=== PATIENT | male | born 1955 | race Asian ===

== ENCOUNTER 2020-08-30 11:50 | Outpatient (REF) | payer OTHER, SELFPAY ==
[2020-08-30 12:38] LABS: COVID-19 Test Negative (Negative)
== END 2020-08-30 11:51 | disposition home or self-care (01) ==
LOC: HO.LAB 11:50
PROVIDERS: Visit Provider Internal Medicine
DX: Z20.828 Contact with and (suspected) exposure to other viral communicable diseases (principal)
CPT/HCPCS: 87635

== ENCOUNTER 2021-01-22 14:55 | Outpatient (REF) | payer OTHER, SELFPAY ==
--- NOTE | ~2021-01-22 | XR_ITS ---
EXAMINATION: XR SHOULDER, RIGHT CLINICAL INFORMATION: Pain COMPARISON: None TECHNIQUE: 3 views of the right shoulder. FINDINGS: The bones and soft tissues are normal. No fracture. Glenohumeral and acromioclavicular alignment is anatomic with normal joint space. No abnormal soft tissue calcifications. XR/XR shoulder RT min 2V IMPRESSION: Normal right shoulder.
== END 2021-01-22 14:56 | disposition home or self-care (01) ==
LOC: HO.HOSX 14:55
PROVIDERS: Visit Provider Orthopaedic Surgery
DX: M25.511 Pain in right shoulder (principal)
CPT/HCPCS: 73030

== ENCOUNTER → 2021-01-23 10:10 | Outpatient (BNVA) | payer OTHER, SELFPAY | PROVIDERS: Visit Provider Orthopaedic Surgery | DX: M75.41 Impingement syndrome of right shoulder (principal) | CPT/HCPCS: 20610; 99202; J1040 ==

== ENCOUNTER → 2021-07-30 07:56 | Outpatient (BNVA) | payer OTHER, SELFPAY | PROVIDERS: Visit Provider Physician Assistant ==

== ENCOUNTER 2021-08-20 15:33 | Outpatient (REF) | payer OTHER, SELFPAY ==
--- NOTE | ~2021-08-20 | MR_ITS ---
EXAMINATION: MR SHOULDER WITHOUT CONTRAST, RIGHT CLINICAL INFORMATION: Impingement syndrome. Right shoulder pain. COMPARISON: Right shoulder radiographs dated 01/23/2021. TECHNIQUE: MRI of the shoulder without contrast was performed on a high-field scanner. FINDINGS: ROTATOR CUFF: Supraspinatus tendinosis with insertional intrasubstance partial tearing measuring 2.1 x 0.7 cm (AP by ML). Possible extension to the articular surface of the tendon where there is associated fraying/partial tearing measuring 1.8 cm in ML dimension to the level of the humeral head apex. [id number] subscapularis tendinosis. No muscle atrophy or fatty infiltration. BICEPS: Mild proximal long head biceps tendinosis. CORACOACROMIAL ARCH: The undersurface of the acromion is minimally curved with no subacromial spur. Moderate acromioclavicular osteoarthritis. Trace fluid within the subacromial subdeltoid bursa, consistent with mild bursitis. LABRUM/CAPSULE: Possible focal nondisplaced undersurface tearing of the posterosuperior labrum (axial image ). Fraying through the periphery of the superior labrum. Intact joint capsule. GLENOHUMERAL JOINT/MARROW: Articular cartilage thinning throughout the humeral head. Tiny marginal osteophytes. Small joint effusion. MR/MR shoulder RT wo con IMPRESSION: 1. Supraspinatus tendinosis with intrasubstance insertional partial tearing measuring 2.1 cm in AP dimension. Possible extension to the articular surface where there is irregular fraying/tearing measuring 1.8 cm in ML dimension. 2. Fizl-ry-wedomcif subscapularis tendinosis. 3. Mild proximal long head biceps tendinosis. 4. Possible focal nonosseous undersurface tear through the posterosuperior labrum. Fraying through the periphery of the superior labrum. 5. Moderate acromioclavicular osteoarthritis. Mild subacromial subdeltoid bursitis. 6. Mild glenohumeral osteoarthritis. Small joint effusion.
== END 2021-08-20 15:34 | disposition home or self-care (01) ==
LOC: HO.MRI 15:33
PROVIDERS: Visit Provider Physician Assistant
DX: M75.41 Impingement syndrome of right shoulder (principal)
CPT/HCPCS: 73221

== ENCOUNTER → 2021-09-09 15:37 | Outpatient (BNVA) | payer OTHER, SELFPAY | PROVIDERS: PCP Pediatrics; Visit Provider Internal Medicine ==

== ENCOUNTER 2021-10-02 05:55 | Outpatient (REF) | payer OTHER, SELFPAY ==
--- NOTE | ~2021-10-02 | FL_ITS ---
EXAMINATION: XR FLUOROSCOPY WITH IMAGES CLINICAL INFORMATION: M25.511 - Pain in right shoulder COMPARISON: Radiographs right shoulder the TECHNIQUE: Fluoroscopy performed by Dr. Ishaan Crow. Fluoroscopy time: 0.4 minutes DAP: 1.22 Gycm2 Images: 3 FINDINGS: There is spinal needle overlying the mid posterior right glenoid with contrast in the soft tissues. Another fluoroscopic spot view shows spinal needle overlying the greater tuberosity posterior aspect with contrast in the soft tissues. The third image shows spinal needle with tip just inferior to the coracoid process in region of short head biceps with contrast in the soft tissues. There is also contrast seen along the long head of biceps tendon sheath. FL/FL guidance in treatment room IMPRESSION: Fluoroscopy for pain management procedures.
== END 2021-10-02 05:56 | disposition home or self-care (01) ==
LOC: HO.RADIR 05:55
PROVIDERS: Visit Provider Internal Medicine
DX: M25.511 Pain in right shoulder (principal)
CPT/HCPCS: 64417; 64418; Q9967

== ENCOUNTER 2021-10-14 11:08 | Outpatient (REF) | payer OTHER, SELFPAY ==
[2021-10-14 12:07] LABS: Influenza A PCR NEGATIVE (Negative); Influenza B PCR NEGATIVE (Negative); Resp Syncy Virus RNA Qual PCR NEGATIVE (Negative); SARS COV2 PCR INHOUSE NEGATIVE (Negative)
== END 2021-10-14 11:09 | disposition home or self-care (01) ==
LOC: HO.LAB 11:08
PROVIDERS: Visit Provider Internal Medicine
DX: Z20.822 Contact with and (suspected) exposure to COVID-19 (principal)
CPT/HCPCS: 0241U; 36415; C9803

== ENCOUNTER 2021-10-15 11:36 | Outpatient (REF) | payer OTHER, SELFPAY ==
[2021-10-15 12:35] LABS: Influenza A PCR NEGATIVE (Negative); Influenza B PCR NEGATIVE (Negative); Resp Syncy Virus RNA Qual PCR NEGATIVE (Negative); SARS COV2 PCR INHOUSE NEGATIVE (Negative)
== END 2021-10-15 11:37 | disposition home or self-care (01) ==
LOC: HO.LAB 11:36
PROVIDERS: Visit Provider Internal Medicine
DX: Z20.822 Contact with and (suspected) exposure to COVID-19 (principal)
CPT/HCPCS: 0241U; 36415; C9803

== ENCOUNTER → 2021-11-25 08:04 | Outpatient (BNVA) | payer OTHER, SELFPAY | PROVIDERS: Visit Provider Internal Medicine ==

== ENCOUNTER → 2022-08-25 10:00 | Outpatient (RCR) | payer OTHER, SELFPAY ==
[2020-09-17 09:22] LABS: COVID-19 Test Negative (Negative)
[2020-09-24 08:06] LABS: COVID-19 Test Negative (Negative)
[2020-10-01 08:25] LABS: COVID-19 Test Negative (Negative)
[2020-10-08 07:40] LABS: COVID-19 Test Negative (Negative); IDNOW Serial# 55D5AD1C
[2020-10-15 07:45] LABS: COVID-19 Test Negative (Negative); IDNOW Serial# 55D5AD1C
[2020-10-22 07:22] LABS: COVID-19 Test Negative (Negative); IDNOW Serial# 55D5AD1C
[2020-10-31 11:55] LABS: SARS-COV-2 PCR UMBRL Not Detected
[2020-11-07 08:17] LABS: SARS-COV-2 PCR UMBRL Not Detected
== END | disposition home or self-care (01) ==
LOC: HO.EMPCOV 09-17 08:58
PROVIDERS: Visit Provider Internal Medicine
DX: Z20.828 Contact with and (suspected) exposure to other viral communicable diseases (principal)
CPT/HCPCS: 87635; C9803; U0003

== ENCOUNTER 2024-09-12 10:05 | Outpatient (AMB) | payer OTHER, SELFPAY ==
[2024-09-12 10:18] VITALS: BP 140/70; PULSE 80; RESP 15; O2SAT 96; BMI 26.4
--- NOTE | 2024-09-12 10:18 | MHC.OFFVIS ---
Vital Signs 09/12/24 10:18 Height 6 ft Weight 195 lb BMI 26.4 BP 140/70 H Blood Pressure Location Lt brachial Position Sitting Respiration 15 Pulse 80 Pulse Source Pulse Oximeter Pulse Oximetry (%) 96 Oxygen Delivery Method Room Air Intake Visit Reasons: f/u per Dr. Crow Allergies No Known Allergies [No Known Allergies*] Allergy (Verified 09/12/24 10:19) Medication List - Last Reconciled 09/12/24 by Claudia Bethea LPN atenolol 25 mg PO DAILY atorvastatin mg PO dulaglutide 1.5 mg subcut QWEEK empagliflozin 25 mg PO DAILY guaifenesin ER 1,200 mg PO BID losartan 50 mg PO DAILY metformin 1,000 mg PO BID pantoprazole 40 mg PO DAILY polyethylene glycol 3350 (Miralax) 17 grams PO BID tamsulosin 0.8 mg PO DAILY HPI HPI f/u per Dr. Crow: Details: 68-year-old male who presents today to the office for a follow up. He is here for follow up on his hand pain.? He continues to have pain, which is significantly worse with activity. He is due for a follow up with Dr. Paul in Orthopedics department. Past Procedures: 10/02/21: Right Diagnostic Axillary Nerve Block ? 70% relief. 01/23/21: Cortisone Injection ? Mild relief for a few days.? [facility] Medical History (Updated 09/27/24 @ 14:13 by Ishaan Crow MD) Right shoulder pain High cholesterol Hypertension Diabetes Family History Father No problems noted. Mother No problems noted. 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 Alert and oriented. Mood and affect appropriate. Follows and participates in conversation appropriately. Respiratory effort is unlabored. Able to transition from sit to stand unassisted. Ambulates with bilaterally normal heel strike and toe off. Exquisite tenderness overlying the right thumb and basal joint. Results Reviewed Results Reviewed: No imaging is available for review. 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 Scribed for Dr. Crow by Ghassan Molina, infertility medical assistant, on 09/12/2024. I, Dr. Crow, have personally reviewed and agree with the information entered by the scribe. Coding Level of Care Code Est Pt Level 3 (16519) Diagnoses Chronic pain of right thumb M79.644; G89.29
== END 2024-09-12 10:58 | disposition home or self-care (01) ==
LOC: HO.PMC 10:05
PROVIDERS: Visit Provider Internal Medicine
DX: M79.644 Pain in right finger(s) (principal); G89.29 Other chronic pain
CPT/HCPCS: 99213

== ENCOUNTER → 2024-09-12 10:05 | Outpatient (BNVA) | payer OTHER, SELFPAY | PROVIDERS: Visit Provider Internal Medicine ==

== ENCOUNTER 2024-10-24 08:32 | Outpatient (REF) | payer OTHER, SELFPAY ==
[2024-10-24 08:54] LABS: MANUAL DIFF FLAG NO
[2024-10-24 09:34] LABS: Basophils Percent Auto 0.4 % (0-2); Eosinophils Absolute Auto 0.1 X10*3/uL (0.0-0.4); Hemoglobin 14.7 g/dl (14.0-18.0); Imm Gran Abs Auto 0.03 X10*3/uL (0.00-0.03); Imm Gran Pct Auto 0.4 % (0.0-0.4); Lymphocytes Absolute Auto 1.3 X10*3/uL (1.2-4.9); Lymphocytes Percent Auto 17.5 % (20-40); Mean Corpuscular HGB Conc 33.4 g/dl (31.0-36.0); Mean Corpuscular Hemoglobin 29.3 pg (27.0-33.0); Mean Corpuscular Volume 87.8 fL (80.0-98.0); Mean Platelet Volume 11.2 fL (9.4-12.4); Monocytes Absolute Auto 0.4 X10*3/uL (0.1-1.2); Monocytes Percent Auto 5.7 % (2-11); Neutrophils Absolute Auto 5.5 x10*3/uL (2.0-8.3); Platelet Count 257 X10*3/uL (160-400); Red Blood Count 5.01 X10*6/uL (4.60-5.80); Red Cell Distribution Width 12.5 % (11.0-16.0); White Blood Count 7.4 X10*3/uL (4.8-10.8)
[2024-10-24 09:45] LABS: Estimated Average Glucose 263 mg/dL; Hemoglobin A1C 352.4433 umol/L; Hemoglobin A1c % 10.8 % (<6.0); Total Hemoglobin (HGBA1C) 3746.1557 umol/L
[2024-10-24 10:10] LABS: Alanine Aminotransferase 40 U/L (0-40); Alkaline Phosphatase 97 U/L (39-117); Anion Gap 13 (12-20); Aspartate Amino Transferase 28 U/L (5-37); Bilirubin Total 0.5 mg/dL (0.0-1.0); Blood Urea Nitrogen 14 mg/dL (9-16); Calcium 8.4 mg/dL (8.4-10.2); Carbon Dioxide 25 mmol/L (22-29); Chloride 106 mmol/L (96-108); Cholesterol 100 mg/dL (<200); Estimated Glomerular Filt Rate > 60; Glucose Random 244 mg/dL (60-115); HDL Cholesterol 34 mg/dL (>40); LDL Cholesterol Calculated 46 mg/dL (<100); Potassium 4.2 mmol/L (3.3-5.1); Sodium 140 mmol/L (135-145); Total Protein 6.8 g/dL (6.5-8.0); Triglycerides 100 mg/dL (<150)
[2024-10-24 11:49] LABS: Creatinine Urine 50.75 mg/dL; Microalbumin Urine < 5.0 mg/L
== END 2024-10-24 08:33 | disposition home or self-care (01) ==
LOC: HO.LAB 08:32
PROVIDERS: Visit Provider Pediatrics
DX: E11.618 Type 2 diabetes mellitus with other diabetic arthropathy (principal)
CPT/HCPCS: 36415; 80053; 80061; 82043; 82570; 83036; 85025

== ENCOUNTER 2025-01-09 10:10 | Outpatient (AMB) | payer OTHER, SELFPAY ==
--- NOTE | 2025-01-09 10:27 | MHC.PC.OV ---
Vital Signs 01/09/25 10:32 Height 6 ft Weight 204 lb BMI 27.7 BP 140/76 H Blood Pressure Location Lt brachial Position Sitting Pulse 75 Pulse Source Pulse Oximeter Pulse Oximetry (%) 96 Oxygen Delivery Method Room Air Intake Visit Reasons: establish care Intake Note: Patient is a new patient here to establish care for DMII, HTN. Transferring care from [facility]. Medical records have been requested today. Extractor Filler Required: No Accompanied by: Self / Same As Patient Allergies No Known Allergies [No Known Allergies*] Allergy (Verified 01/09/25 10:49) Medication List - Last Reconciled 01/09/25 by Adalberto Stanford PA-C atenolol 25 mg PO DAILY atorvastatin mg PO empagliflozin 25 mg PO DAILY losartan 50 mg PO DAILY metformin ER mg PO omeprazole 20 mg PO DAILY pantoprazole 40 mg PO DAILY semaglutide (Ozempic) mg subcut tamsulosin 0.8 mg PO DAILY Tobacco use date assessed: 01/09/25 Fall risk assessment: No Falls in past year Last assessed Fall Risk: 01/09/25 Dental Screening Dental Screen Date: 01/09/25 Did you have a dental visit in the last 12 months?: Yes Did you have a dental problem in the last 6 months where you did not have access to dental care?: No Was dental information given to patient?: Patient has dentist HPI establish care HPI Details Patient has a 69 year male here today for new patient visit. Patient has a past medical history significant for hyperlipidemia, type 2 diabetes, hypertension. Previous PCP was at [facility] Concern-- > reports having left hand weakness and pain at the base of his thumb. 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 He is interested in seeing hand surgeon in near future. .. Type 2 diabetes: Has been suboptimally controlled. Today's A1c at 9 from 10.1. Currently fasting due to Ramadan He continues with Trulicity in metformin 750 mg .. Hyperlipidemia: Recent lipid panel showing good control of his total cholesterol and LDL. Laboratory Tests 05/28/20 10/24/24 10/24/24 09:02 08:46 08:48 Fasting Glucose 225 H Random Glucose 244 H Hemoglobin A1c % 10.8 H Cholesterol 100 LDL Cholesterol, C alc 46 Urine Microalbumin < 5.0 [facility] Medical History Right shoulder pain High cholesterol Hypertension Diabetes Family History Father No problems noted. Mother No problems noted. 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 Cognitive needs: No Hearing needs: No Vision needs: No Questionnaire PHQ-9 Over the last 2 weeks, how often have you been bothered by any of the following problems? 1. Little interest or pleasure in doing things: not at all 2. Feeling down, depressed, or hopeless: not at all 3. Trouble falling or staying asleep, or sleeping too much: not at all 4. Feeling tired or having little energy: not at all 5. Poor appetite or overeating: not at all 6. Feeling bad about yourself - or that you are a failure or have let yourself or your family down: not at all 7. Trouble concentrating on things, such as reading the newspaper or watching television: not at all 8. Moving or speaking so slowly that other people could have noticed. Or the opposite - being so fidgety or restless that you have been moving around a lot more than usual: not at all 9. Thoughts that you would be better off or of hurting yourself in some way: not at all Total score: 0 Depression Screening Interpretation: Negative Depression Screening Done: Yes 45514 - PHQ-9 Billing: Yes Source: Developed by Drs. Branden Bonds, Liz Pérez, Mode Patterson and colleagues, with an educational carson from [employer]. Thrive Questionnaire Date Thrive assessed: 01/09/25 I am a: Patient What is your living situation today?: I have a steady place to live Within the past 12 months, did the food you bought not last and you didn't have the money to get more?: Never true Within the past 12 months, did you worry whether your food would run out before you got money to buy more?: Never true Do you have trouble paying for medicines?: No Do you have trouble getting transportation to medical appointments?: No Do you have trouble paying your heating and electricity bill?: No Do you have trouble taking care of your child, family member or friend?: No Do you have trouble with day-to-day activities such as bathing, preparing meals, shopping, managing finances, etc.?: No Are you currently unemployed and looking for a job?: No Are you interested in more education?: Yes Please select the resources that you would like help with: None Currently or been in a relationship where the following occur: No concerns reported THRIVE Score: 0 AUDIT C Alcohol Use Questionnaire (AUDIT-C) 1. How often do you have a drink containing alcohol?: Never 3. How often do you have six or more drinks on one occasion?: Never Total Score: 0 LINSEY-7 AMB Questionnaire LINSEY-7 Date LINSEY - 7 assessed: 01/09/25 Feeling nervous, anxious, or on edge: 0 = Not at all Not being able to stop or control worryin = Not at all Worrying too much about different things: 0 = Not at all Trouble relaxin = Not at all Being so restless that it is hard to sit still: 0 = Not at all Becoming easily annoyed or irritable: 0 = Not at all Feeling afraid as if something awful might happen: 0 = Not at all Total LINSEY-7 score (0-4 normal; 5-9 mild; 10-14 moderate; 15-21 severe): 0 Source: Developed by Drs. Branden Bonds, Liz Pérez, Mode Patterson and colleagues, with an educational carson from [employer]. LINSEY-7 Assessment Billing LINSEY-7 Assessment Tool: LINSEY-7 Assessment 07696 Review of Systems Const Denies headache(s) Eyes Denies loss of vision ENT Denies vertigo, Denies dizziness, Denies headache(s) and Denies sore throat Card Denies chest pain, Denies leg edema and Denies lightheadedness Resp Denies cough, Denies hemoptysis and Denies wheezing GI Denies abdominal pain, Denies melena, Denies constipation, Denies diarrhea and Denies vomiting Denies dysuria, Denies urinary frequency and Denies urinary urgency Musc Denies arthralgias, Denies joint swelling, Denies numbness and Denies tingling Neuro Denies Abnormal speech present, Denies behavioral changes, Denies vertigo, Denies dizziness, Denies headache(s), Denies loss of vision, Denies memory loss, Denies numbness and Denies tingling Psych Denies anxiety, Denies behavioral changes, Denies depression, Denies memory loss and Denies panic attacks Maximus/Lymph Denies easy bleeding and Denies easy bruising Aller/Immun Denies wheezing Physical exam (Primary Care) Vital Signs: Last Vital Signs Pulse 75 01/09/25 10:32 BP 140/76 H 01/09/25 10:32 Pulse Ox 96 01/09/25 10:32 Oxygen Delivery Method Room Air 01/09/25 10:32 BMI result Body Mass Index 27.7 Tobacco/Smoking Status: Tobacco use Status Tobacco use date assessed 01/09/25 01/09/25 10:45 Patient Tobacco Use Status Never used Tobacco 01/09/25 10:45 e-Cigarette/Vaping Use Never Used 01/09/25 10:45 PHQ-9: PHQ-9 Score PHQ-9: Total score 0 01/09/25 15:12 Depression Screening Interpretation: Negative Thrive Assessment: Date of Thrive Assessment Date Thrive assessed 01/09/25 01/09/25 10:27 Currently or been in a relationship where the following occur: No concerns reported Const General: healthy appearing, no acute distress, alert and awake Nutritional Appearance: well nourished Orientation/consciousness: oriented to person, oriented to place and oriented to time HENMT Ears: TM's normal bilaterally General nose exam: Normal nasal mucous membranes and turbinates present Eyes Conjunctivae: conjunctivae normal Sclerae: sclerae normal Pupils: Equal, round and reactive pupils present Neck Neck: Yes no lymphadenopathy and Yes no JVD Thyroid: Thyroid normal Carotids: no bruits Resp Effort & Inspection: normal respiratory effort and not tachypneic Auscultation: no crackles, no rales, no rhonchi and no wheezes Cardio Rate: regular rate Rhythm: regular rhythm Heart sounds: no murmurs and normal S1 and S2 GI Palpation (GI): Soft to palpation, nontender, no hepatomegaly and no splenomegaly Auscultation: normal bowel sounds Skin General skin exam: no rashes or lesions noted and dry skin Neuro General: oriented to person, oriented to place and oriented to time Cranial nerves: Yes Equal, round and reactive pupils present Speech: No Abnormal speech present Gait exam (Neuro): Normal gait present Motor exam (neuro): no tremor noted Extrem Right upper extremity: full ROM Left upper extremity: full ROM Right lower extremity: full ROM; no edema Left lower extremity: full ROM; no edema Psych Mental Status: mental status grossly normal Speech and movement: Normal speech and movement present Affect: normal affect Attitude: cooperative Thought process: Normal thought process present Office Procedures Flu Questionnaire Does the patient have a severe egg allergy?: No Does the patient have severe life threatening allergies?: No Does the patient have a fever or illness today?: No Has the patient ever had Guillain-[place] Syndrome?: No Has the patient ever had any past reaction to a flu shot?: No Results AMB Hemoglobin A1c AMB Hemoglobin A1c 9.4 % Last Edit by EVIE Catalan on 01/09/25 10:59 Immunizations Fluarix Triv [id number] (PF) 45 mcg (15 mcg x 3)/0.5 mL IM syringe Performing Provider: Adalberto Stanford PA-C [facility] Documented (not given) by: EVIE Catalan on 01/09/25 10:48 Reason Not Given: Received Previously Results Reviewed Results Reviewed: Laboratory Last Values Hgb A1c (Clinic) 9.4 % (4.0-6.0) H 01/09/25 10:26 Coding Level of Care Code New Pt Level 4 (20212) Diagnoses Type 2 diabetes mellitus with hyperglycemia, without long-term current use of insulin E11.65 Diabetes mellitus complication status: with hyperglycemia Diabetes mellitus senior care insulin use: without senior care use Diabetes mellitus type: type 2 High cholesterol E78.00 Primary hypertension I10 Hypertension type: primary hypertension 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 Benign prostatic hyperplasia without lower urinary tract symptoms N40.0 Lower urinary tract symptom presence: symptoms absent Additional Codes LINSEY-7 Assessment Billing - LINSEY-7 Assessment Tool: LINSEY-7 Assessment 38377 ([id number]) PHQ-9 - 39719 - PHQ-9 Billing: Yes ([id number]) Assessment & Plan Assessment & Plan (1) Diabetes: Code(s): E11.9 - Type 2 diabetes mellitus without complications Category: Medical Qualifiers: Diabetes mellitus complication status: with hyperglycemia Diabetes mellitus senior care insulin use: without senior care use Diabetes mellitus type: type 2 Qualified Code(s): E11.65 - Type 2 diabetes mellitus with hyperglycemia Plan: Patient's type 2 diabetes is suboptimally controlled A1c above 9. For now his treatment regime will be Trulicity weekly along with metformin a 1000 daily. Will make adjustments per lab results. Currently fasting due to Ramadan. (2) High cholesterol: Code(s): E78.00 - Pure hypercholesterolemia, unspecified Category: Medical Plan: Most recent lipid panel showing good control of his total cholesterol and LDL. He continues on atorvastatin 40 mg. Goal LDL to remain below 100 (3) Hypertension: Code(s): I10 - Essential (primary) hypertension Category: Medical Qualifiers: Hypertension type: primary hypertension Qualified Code(s): I10 - Essential (primary) hypertension Plan: Patient's blood pressure slightly elevated today in office. He continues with the atenolol and losartan. 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 He is interested in seeing a hand surgeon the fall of 2024 (5) BPH (benign prostatic hyperplasia): Code(s): N40.0 - Benign prostatic hyperplasia without lower urinary tract symptoms Category: Medical Qualifiers: Lower urinary tract symptom presence: symptoms absent Qualified Code(s): N40.0 - Benign prostatic hyperplasia without lower urinary tract symptoms Plan: Patient continues on tamsulosin with good effect on his urinary stream. Will continue to follow his PSA. Orders: Orders Influenza [id number] Immunization 01/09/25 Z23 - Encounter for immunization AMB Hemoglobin A1c 01/09/25 E11.9 - Type 2 diabetes mellitus without complications Medications: Changed From empagliflozin 25 mg PO DAILY E11.65 - Type 2 diabetes mellitus with hyperglycemia To empagliflozin 25 mg PO DAILY 90 days 90 tabs 1RF E11.65 - Type 2 diabetes mellitus with hyperglycemia From atenolol 25 mg PO DAILY I10 - Essential (primary) hypertension To atenolol 25 mg PO DAILY 90 days 90 tabs 1RF I10 - Essential (primary) hypertension From atorvastatin PO E78.00 - Pure hypercholesterolemia, unspecified To atorvastatin 40 mg PO QPM 90 days 90 tabs 1RF E78.00 - Pure hypercholesterolemia, unspecified From tamsulosin 0.8 mg PO DAILY N40.0 - Benign prostatic hyperplasia without lower urinary tract symptoms To tamsulosin 0.8 mg (2 x 0.4 mg) PO DAILY 90 days 180 caps 1RF N40.0 - Benign prostatic hyperplasia without lower urinary tract symptoms From losartan 50 mg PO DAILY 30 tabs 2RF E78.00 - Pure hypercholesterolemia, unspecified To losartan 50 mg PO DAILY 90 days 90 tabs 1RF E78.00 - Pure hypercholesterolemia, unspecified Patient Instructions: Goal: Blood pressure to be below 140/90, LDL to be below 100, A1c to be below 7.0 Barriers: Adherence to physical activity and healthy eating habits
[2025-01-09 10:32] VITALS: BP 140/76; PULSE 75; O2SAT 96; BMI 27.7
== END 2025-01-09 11:11 | disposition home or self-care (01) ==
PROVIDERS: Visit Provider Physician Assistant
DX: E11.65 Type 2 diabetes mellitus with hyperglycemia (principal); E78.00 Pure hypercholesterolemia, unspecified; I10 Essential (primary) hypertension; R29.898 Other symptoms and signs involving the musculoskeletal system; N40.0 Benign prostatic hyperplasia without lower urinary tract symptoms

== ENCOUNTER → 2025-01-09 10:10 | Outpatient (BNVA) | payer OTHER, SELFPAY | PROVIDERS: Visit Provider Physician Assistant | DX: E11.65 Type 2 diabetes mellitus with hyperglycemia (principal); E78.00 Pure hypercholesterolemia, unspecified; I10 Essential (primary) hypertension; R29.898 Other symptoms and signs involving the musculoskeletal system; N40.0 Benign prostatic hyperplasia without lower urinary tract symptoms; Z79.84 Long term (current) use of oral hypoglycemic drugs; Z79.899 Other long term (current) drug therapy | CPT/HCPCS: 83036; 90471; 96127 ==

== ENCOUNTER 2025-03-07 08:38 | Outpatient (REF) | payer OTHER, SELFPAY ==
--- NOTE | ~2025-03-07 | XR_ITS ---
EXAMINATION: XR HAND 3 OR MORE VIEWS LEFT HISTORY: M79.641 - Pain in left hand COMPARISON: There are no prior studies available for comparison. FINDINGS: Three views of the left hand are submitted. Osseous mineralization is normal. There is no fracture or dislocation. There is moderate degenerative change of the 1st carpometacarpal joint, with joint space narrowing and osteophyte formation. There is mild narrowing of the DIP joint of the 4th finger. The soft tissues are unremarkable. XR/XR hand LT min 3V IMPRESSION: Degenerative changes of the left hand as described. Electronically signed by: Branden Zuniga MD 03/08/2025 05:29 PM EDT
== END 2025-03-07 08:39 | disposition home or self-care (01) ==
LOC: HO.HOSX 08:38
PROVIDERS: PCP Physician Assistant; Visit Provider Orthopaedic Surgery
DX: M79.642 Pain in left hand (principal); M18.12 Unilateral primary osteoarthritis of first carpometacarpal joint, left hand
CPT/HCPCS: 20600; 73130; J1010; J2003

== ENCOUNTER 2025-03-07 08:38 | Outpatient (AMB) | payer OTHER, SELFPAY ==
--- NOTE | 2025-03-07 08:57 | MHC.OFFVIS ---
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 States pain started approx 1 year ago and has worsen. He is having pain with gripping, grasping, twisting and lifting items. Pain is at his CMC joint. He has ROM. Denies numbness, tingling or locking of any finger. 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 He works [place] [employer] [place]. He complains of pain at the base of his thumb & his wrist, worse with pinching & gripping activities. His pain has been worsening over the last year. He also complains of similar pain at the base of his right thumb, but his left is more bothersome at this time. He denies any numbness, tingling, locking, or catching. He has been seen by Pain Management in the past, and received a steroid injection by Dr. Crow ~1 year ago, with good relief. He is a Diabetic, which is not well-controlled. His most recent HgA1c was 9.4% on 01/09/25. He is working to manage this better. [facility] Medical History Right shoulder pain High cholesterol Hypertension Diabetes Family History Father No problems noted. Mother No problems noted. 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[employer] [place] Cognitive needs: No Hearing needs: No Vision needs: No Review of Systems Const All systems reviewed & are unremarkable except as noted in HPI and below Physical Exam Vital Signs: BMI result Body Mass Index 27.7 Const General: cooperative, healthy appearing and no acute distress Orientation/consciousness: patient oriented x3 HEENT Head: Yes normocephalic and Yes atraumatic Eyes EOM: EOMs intact bilaterally Resp Effort & Inspection: normal respiratory effort and able to speak in complete sentences Cardio Jugular venous distension: no JVD Skin General skin exam: turgor normal Rashes: no rashes Neuro General: patient oriented x3 Extrem Other: Evaluation of Left Upper Extremity: The patient is alert, oriented, and in no acute distress Neuro: Median, Ulnar, Radial nerves motor and sensory intact and sensation is normal to the tips of all digits Vascular: Cap refill brisk ROM: He can make a fist and extend all his digits No locking or catching Skin: No lacerations or abrasions. General: No Ecchymosis. No Erythema or evidence of infection. Most tender over the basal joint Pos shoulder sign Pos CMC grind No tenderness over the MCP joint No tenderness over the 1st dorsal compartment No tenderness over the a1 ariane Radiographs: 3 views of the Left hand were taken and viewed by me today in clinic. They show no fractures or dislocations. There are severe arthritic changes to the basal joint, with joint space narrowing, subchondral scleroris, and osteophyte formation. Psych Appearance: grossly normal Affect: normal affect Attitude: cooperative Office Procedures AMB Fracture Care Details: no fx, injection Fracture Billing Code: Fracture Billing Code Assessment & Plan Assessment & Plan (1) Arthritis of carpometacarpal (CMC) joint of left thumb: Code(s): M18.12 - Unilateral primary osteoarthritis of first carpometacarpal joint, left hand Category: Medical (2) Diabetes: Code(s): E11.9 - Type 2 diabetes mellitus without complications Category: Medical Qualifiers: Diabetes mellitus complication status: with hyperglycemia Diabetes mellitus lobsterman insulin use: without lobsterman use Diabetes mellitus type: type 2 Qualified Code(s): E11.65 - Type 2 diabetes mellitus with hyperglycemia Plan Assessment & Plan: 1. Left basal joint osteoarthritis I educated him about this condition I discussed operative and non-operative treatment options. I am not recommending surgery at this time. The patient would like to proceed with an injection I discussed activity modification, they should limit or avoid any heavy or repetitive pinching or gripping activities He was fitted for a comfort cool brace to wear with daily activity He should work on ROM exercises, and avoid any gripping or strengthening activities I discussed the use of assistive devices for daily activity Injection #1: The risks and benefits of a steroid injection including but not limited to risk of damage to blood vessels, nerve, tendon, infection, skin bleaching, persistent or worsening pain, and failure to improve symptoms were discussed with the patient and they wish to proceed with the steroid injection. Once consent was obtained the skin over the dorsum of the Left basal joint was sterilely prepped. The joint was then injected with a combination of 1 mL of (40 mg/ml} Depo-Medrol and 1% plain Lidocaine. The patient appears to have tolerated the procedure well and with no complications. He had good early relief before leaving clinic today. He knows that they may not have another steroid injection into this joint for least 4 months. Please note that greater than 30 minutes was spent with this patient going over the history, evaluating the patient and radiographs, formulating possible treatment options, discussing them with the patient, and documenting the visit. Scribed for Chantal Paul MD by Martínez Hackett medical support specialist, on 03/07/25 at 9:30 AM, EST. Coding Level of Care Code New Pt Level 4 (93657) Diagnoses Arthritis of carpometacarpal (CMC) joint of left thumb M18.12 Type 2 diabetes mellitus with hyperglycemia, without long-term current use of insulin E11.65 Diabetes mellitus complication status: with hyperglycemia Diabetes mellitus lobsterman insulin use: without residential use Diabetes mellitus type: type 2 CPT Codes Fracture Care - Fracture Billing Code: Fracture Billing Code ([id number])
[2025-03-07 08:58] VITALS: BMI 27.7
== END 2025-03-07 09:58 | disposition home or self-care (01) ==
LOC: HO.HOS 08:39
PROVIDERS: PCP Physician Assistant; Visit Provider Orthopaedic Surgery
DX: M18.12 Unilateral primary osteoarthritis of first carpometacarpal joint, left hand (principal); E11.65 Type 2 diabetes mellitus with hyperglycemia
CPT/HCPCS: 20600; 99204

== ENCOUNTER → 2025-03-07 09:05 | Outpatient (BNV) | payer OTHER, SELFPAY | PROVIDERS: PCP Physician Assistant; Visit Provider Radiology Diagnostic Radiology | DX: M18.12 Unilateral primary osteoarthritis of first carpometacarpal joint, left hand (principal) | CPT/HCPCS: 73130 ==

== ENCOUNTER 2025-04-04 08:42 | Outpatient (REF) | payer OTHER, SELFPAY ==
[2025-04-04 09:12] LABS: Hematocrit 45.7 % (42.0-52.0); Hemoglobin 15.1 g/dl (14.0-18.0); Mean Corpuscular Hemoglobin 29.4 pg (27.0-33.0); Mean Corpuscular Volume 88.9 fL (80.0-98.0); Mean Platelet Volume 10.9 fL (9.4-12.4); Platelet Count 221 X10*3/uL (160-400); Red Blood Count 5.14 X10*6/uL (4.60-5.80); Red Cell Distribution Width 12.6 % (11.0-16.0); White Blood Count 6.8 X10*3/uL (4.8-10.8)
[2025-04-04 09:48] LABS: Creatinine Urine 48.04 mg/dL; Microalbumin Urine < 5.0 mg/L
[2025-04-04 09:54] LABS: Alanine Aminotransferase 31 U/L (0-40); Albumin Level 4.3 g/dL (3.5-5.0); Alkaline Phosphatase 84 U/L (39-117); Anion Gap 15 (12-20); Aspartate Amino Transferase 20 U/L (5-37); Bilirubin Total 0.6 mg/dL (0.0-1.0); Blood Urea Nitrogen 22 mg/dL (9-16); Calcium 9.4 mg/dL (8.4-10.2); Carbon Dioxide 24 mmol/L (22-29); Chloride 103 mmol/L (96-108); Cholesterol 180 mg/dL (<200); Estimated Glomerular Filt Rate > 60; Glucose Fasting 304 mg/dL (60-99); HDL Cholesterol 45 mg/dL (>40); LDL Cholesterol Calculated 66 mg/dL (<100); Potassium 3.9 mmol/L (3.3-5.1); Sodium 138 mmol/L (135-145); Triglycerides 346 mg/dL (<150)
[2025-04-04 10:02] LABS: Prostate Specific Antigen Scr 1.61 ng/mL (<0.05-4.0)
== END 2025-04-04 08:43 | disposition home or self-care (01) ==
LOC: HO.LAB 08:42
PROVIDERS: PCP Physician Assistant; Visit Provider Physician Assistant
DX: I10 Essential (primary) hypertension (principal); E11.9 Type 2 diabetes mellitus without complications; E78.00 Pure hypercholesterolemia, unspecified; Z12.5 Encounter for screening for malignant neoplasm of prostate
CPT/HCPCS: 36415; 80053; 80061; 82570; 84153; 85027

== ENCOUNTER 2025-04-11 09:16 | Outpatient (AMB) | payer OTHER, SELFPAY ==
--- NOTE | 2025-04-11 09:21 | A.OFFPC_ITS ---
Vital Signs 04/11/25 09:22 Height 6 ft Weight 205 lb BMI 27.8 BP 120/80 Blood Pressure Location Lt brachial Position Sitting Pulse 108 H Pulse Source Pulse Oximeter Temp 97.1 F Temp Source Temporal Artery Scan Pulse Oximetry (%) 96 Oxygen Delivery Method Room Air Intake Visit Reasons: f/u DMII Intake Note: Patient is here to follow up on DMII. Vegetable Tier Required: No Paint Maker: Not Required per policy Accompanied by: Self / Same As Patient Allergies No Known Allergies [No Known Allergies*] Allergy (Verified 04/11/25 09:39) Medication List - Last Reconciled 04/11/25 by Adalberto Stanford PA-C atenolol 25 mg PO DAILY 90 days atorvastatin 40 mg PO QPM 90 days empagliflozin 25 mg PO DAILY 90 days losartan 50 mg PO DAILY 90 days metformin ER mg PO omeprazole 20 mg PO DAILY pantoprazole 40 mg PO DAILY semaglutide (Ozempic) 0.5 mg (0.736 mL) subcut QWEEK 4 weeks tamsulosin 0.8 mg (2 x 0.4 mg) PO DAILY 90 days Tobacco use date assessed: 01/09/25 Fall risk assessment: No Falls in past year Last assessed Fall Risk: 04/11/25 Dental Screening Dental Screen Date: 01/09/25 HPI f/u DMII HPI Details Patient has a 69 year male here today for follow-up visit Patient has a past medical history significant for hyperlipidemia, type 2 diabetes, hypertension. Previous PCP was at [facility]-- > He has experienced dribbling and urgency associated with urination for more than six months. Previously assessed by a urologist with no significant findings, the patient continues to face these urinary symptoms. An acute episode of burning in the urethral area further complicates this concern. PLAn: Will hold off on his Jardiance as it could cause signs symptoms of urinary frequency .. Type 2 diabetes: Has been suboptimally controlled. Most recent fasting blood sugar at 300, A1c at 9., he has been taking Ozempic 0.25 mg metformin 750 mg daily and Jardiance. PLAN : Will increase his Ozempic to 0.5 mg weekly for better glycemic control .. Hyperlipidemia: Recent lipid panel showing good control of his total cholesterol and LDL. Laboratory Tests 10/24/24 01/09/25 04/04/25 08:48 10:26 08:50 RBC Creatinine Fasting Glucose Hgb A1c (Clinic) 9.4 H Hemoglobin A1c % 10.8 H Cholesterol LDL Cholesterol, C alc HDL Cholesterol PSA Screen Urine Microalbumin < 5.0 04/04/25 08:52 RBC 5.14 Creatinine 1.02 Fasting Glucose 304 H Hgb A1c (Clinic) Hemoglobin A1c % Cholesterol 180 LDL Cholesterol, C alc 66 HDL Cholesterol 45 PSA Screen 1.61 Urine Microalbumin PFSH Medical History Right shoulder pain High cholesterol Hypertension Diabetes Family History Father No problems noted. Mother No problems noted. 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[place] Cognitive needs: No Hearing needs: No Vision needs: No Questionnaire Thrive Questionnaire Date Thrive assessed: 01/09/25 I am a: Patient What is your living situation today?: I have a steady place to live Within the past 12 months, did the food you bought not last and you didn't have the money to get more?: Never true Within the past 12 months, did you worry whether your food would run out before you got money to buy more?: Never true Do you have trouble paying for medicines?: No Do you have trouble getting transportation to medical appointments?: No Do you have trouble paying your heating and electricity bill?: No Do you have trouble taking care of your child, family member or friend?: No Do you have trouble with day-to-day activities such as bathing, preparing meals, shopping, managing finances, etc.?: No Are you currently unemployed and looking for a job?: No Are you interested in more education?: Yes Please select the resources that you would like help with: None Currently or been in a relationship where the following occur: I choose not to answer THRIVE Score: 0 AUDIT C Alcohol Use Questionnaire (AUDIT-C) 1. How often do you have a drink containing alcohol?: Never 3. How often do you have six or more drinks on one occasion?: Never Total Score: 0 LINSEY-7 AMB Questionnaire LINSEY-7 Date LINSEY - 7 assessed: 01/09/25 Feeling nervous, anxious, or on edge: 0 = Not at all Not being able to stop or control worryin = Not at all Worrying too much about different things: 0 = Not at all Trouble relaxin = Not at all Being so restless that it is hard to sit still: 0 = Not at all Becoming easily annoyed or irritable: 0 = Not at all Feeling afraid as if something awful might happen: 0 = Not at all Total LINSEY-7 score (0-4 normal; 5-9 mild; 10-14 moderate; 15-21 severe): 0 Source: Developed by Drs. Branden Bonds, Liz Pérez, Mode Patterson and colleagues, with an educational carson from [employer]. Review of Systems Const Denies headache(s) Eyes Denies loss of vision ENT Denies vertigo, Denies dizziness, Denies headache(s) and Denies sore throat Card Denies chest pain, Denies leg edema and Denies lightheadedness Resp Denies cough, Denies hemoptysis and Denies wheezing GI Denies abdominal pain, Denies melena, Denies constipation, Denies diarrhea and Denies vomiting Denies dysuria, Denies urinary frequency and Denies urinary urgency Musc Denies arthralgias, Denies joint swelling, Denies numbness and Denies tingling Neuro Denies Abnormal speech present, Denies behavioral changes, Denies vertigo, Denies dizziness, Denies headache(s), Denies loss of vision, Denies memory loss, Denies numbness and Denies tingling Psych Denies anxiety, Denies behavioral changes, Denies depression, Denies memory loss and Denies panic attacks Maximus/Lymph Denies easy bleeding and Denies easy bruising Aller/Immun Denies wheezing Physical exam (Primary Care) Vital Signs: Last Vital Signs Temp 97.1 F 04/11/25 09:22 Pulse 108 H 04/11/25 09:22 BP 120/80 04/11/25 09:22 Pulse Ox 96 04/11/25 09:22 Oxygen Delivery Method Room Air 04/11/25 09:22 BMI result Body Mass Index 27.8 Tobacco/Smoking Status: Tobacco use Status Tobacco use date assessed 01/09/25 04/11/25 09:31 Patient Tobacco Use Status Never used Tobacco 04/11/25 09:31 e-Cigarette/Vaping Use Never Used 04/11/25 09:31 Thrive Assessment: Date of Thrive Assessment Date Thrive assessed 01/09/25 04/11/25 09:31 Currently or been in a relationship where the following occur: I choose not to answer Const General: healthy appearing, no acute distress, alert and awake Nutritional Appearance: well nourished Orientation/consciousness: oriented to person, oriented to place and oriented to time HENMT Ears: TM's normal bilaterally General nose exam: Normal nasal mucous membranes and turbinates present Eyes Conjunctivae: conjunctivae normal Sclerae: sclerae normal Pupils: Equal, round and reactive pupils present Neck Neck: Yes no lymphadenopathy and Yes no JVD Thyroid: Thyroid normal Carotids: no bruits Resp Effort & Inspection: normal respiratory effort and not tachypneic Auscultation: no crackles, no rales, no rhonchi and no wheezes Cardio Rate: regular rate Rhythm: regular rhythm Heart sounds: no murmurs and normal S1 and S2 GI Palpation (GI): Soft to palpation, nontender, no hepatomegaly and no splenomegaly Auscultation: normal bowel sounds Skin General skin exam: no rashes or lesions noted and dry skin Neuro General: oriented to person, oriented to place and oriented to time Cranial nerves: Yes Equal, round and reactive pupils present Speech: No Abnormal speech present Gait exam (Neuro): Normal gait present Motor exam (neuro): no tremor noted Extrem Right upper extremity: full ROM Left upper extremity: full ROM Right lower extremity: full ROM; no edema Left lower extremity: full ROM; no edema Psych Mental Status: mental status grossly normal Speech and movement: Normal speech and movement present Affect: normal affect Attitude: cooperative Thought process: Normal thought process present Results AMB Hemoglobin A1c AMB Hemoglobin A1c 9.6 % Last Edit by CORWIN Viveros on 04/11/25 09:38 Immunizations pneumoc 20-janet conj-dip cr(PF) 0.5 mL IM syringe Performing Provider: Adalberto Stanford PA-C [place] [facility] [place] [facility] Administered by: Zenia Pulido CMA on 04/11/25 10:03 Dose Route Admin Location Dispensed Lot Number Expiration Date NDC Cancer Registry Manager 0.5 mL IM Left Deltoid 0.5 mL [id number] 12/10/25 [facility] VIS Given Date VIS Provided VIS Publication Date 04/11/25 Single Vaccine 21 Eligibility Eligibility Date Funding Source Not [facility] Eligible 04/11/25 Private Results Reviewed Results Reviewed: Laboratory Last Values Hgb A1c (Clinic) 9.6 % (4.0-6.0) H 04/11/25 09:21 Coding Level of Care Code Est Pt Level 4 (13990) Diagnoses Type 2 diabetes mellitus with hyperglycemia, without long-term current use of insulin E11.65 Diabetes mellitus complication status: with hyperglycemia Diabetes mellitus superintendent container terminal insulin use: without superintendent container terminal use Diabetes mellitus type: type 2 High cholesterol E78.00 Primary hypertension I10 Hypertension type: primary hypertension Benign prostatic hyperplasia without lower urinary tract symptoms N40.0 Lower urinary tract symptom presence: symptoms absent Urinary dribbling N39.43 Erectile dysfunction associated with type 2 diabetes mellitus E11.69; N52.1 Tachycardia R00.0 Assessment & Plan Assessment & Plan (1) Diabetes: Code(s): E11.9 - Type 2 diabetes mellitus without complications Category: Medical Qualifiers: Diabetes mellitus complication status: with hyperglycemia Diabetes mellitus mcc insulin use: without mcc use Diabetes mellitus type: type 2 Qualified Code(s): E11.65 - Type 2 diabetes mellitus with hyperglycemia Plan: Patient's type 2 diabetes is suboptimally controlled A1c above 9 and a fasting blood sugar of 300. Will increase his Ozempic to 0.5 mg weekly Due to his reports some urinary dribbling will hold off in his Jardiance to see if this is the cause. Continues with the use of tamsulosin. Goal A1c is to be below 7.0 (2) High cholesterol: Code(s): E78.00 - Pure hypercholesterolemia, unspecified Category: Medical Plan: Most recent lipid panel showing good control of his total cholesterol and LDL. He continues on atorvastatin 40 mg. Goal LDL to remain below 100 (3) Hypertension: Code(s): I10 - Essential (primary) hypertension Category: Medical Qualifiers: Hypertension type: primary hypertension Qualified Code(s): I10 - Essential (primary) hypertension Plan: Patient's blood pressure acceptable today in office. He continues with the atenolol and losartan. Goal blood pressure to be below 140/90 (4) BPH (benign prostatic hyperplasia): Code(s): N40.0 - Benign prostatic hyperplasia without lower urinary tract symptoms Category: Medical Qualifiers: Lower urinary tract symptom presence: symptoms absent Qualified Code(s): N40.0 - Benign prostatic hyperplasia without lower urinary tract symptoms Plan: Patient continues on tamsulosin though recently noted incomplete bladder emptying symptoms. Most recent PSA normal (5) Urinary dribbling: Code(s): N39.43 - Post-void dribbling Category: Medical Plan: As above will consider Urology evaluation. Will hold off on his Jardiance to see if this is the reason his urinary symptoms. (6) Erectile dysfunction associated with type 2 diabetes mellitus: Code(s): E11.69 - Type 2 diabetes mellitus with other specified complication; N52.1 - Erectile dysfunction due to diseases classified elsewhere Category: Medical Plan: Patient willing to try sildenafil half a tablet before sexual activity. (7) Tachycardia: Code(s): R00.0 - Tachycardia, unspecified Category: Medical Plan: Today's heart rate at 108. Continues on atenolol. Will send for EKG for evaluation of his tachycardia. Orders: Orders ECG 12 lead EKG 04/11/25 R00.0 - Tachycardia, unspecified UA CC w/rflx Micro + Cult 04/11/25 N39.43 - Post-void dribbling, R30.0 - Dysuria AMB Hemoglobin A1c 04/11/25 E11.65 - Type 2 diabetes mellitus with hyperglycemia Pneumococcal 20 Immunization 04/11/25 E11.69 - Type 2 diabetes mellitus with other specified complication, N52.1 - Erectile dysfunction due to diseases classified elsewhere, Z23 - Encounter for immunization Medications: New sildenafil 100 mg PO DAILY 4 tabs 0RF 4 days E11.69 - Type 2 diabetes mellitus with other specified complication, N52.1 - Erectile dysfunction due to diseases classified elsewhere Patient Instructions: Goal: A1c to be below 7.0, LDL to be below 100, blood pressure to remain below 140/90 Barriers: Adherence to physical activity and healthy eating habits
[2025-04-11 09:22] VITALS: BP 120/80; PULSE 108; TEMP 36.2; O2SAT 96; BMI 27.8
== END 2025-04-11 10:08 | disposition home or self-care (01) ==
LOC: HO.HMCH 09:17
PROVIDERS: PCP Physician Assistant; Visit Provider Physician Assistant
DX: Z23 Encounter for immunization (principal); E11.69 Type 2 diabetes mellitus with other specified complication; N52.1 Erectile dysfunction due to diseases classified elsewhere; E11.65 Type 2 diabetes mellitus with hyperglycemia

== ENCOUNTER → 2025-04-11 09:16 | Outpatient (BNVA) | payer OTHER, SELFPAY | PROVIDERS: PCP Physician Assistant; Visit Provider Physician Assistant | DX: E11.65 Type 2 diabetes mellitus with hyperglycemia (principal); E11.69 Type 2 diabetes mellitus with other specified complication; I10 Essential (primary) hypertension; E78.00 Pure hypercholesterolemia, unspecified; N40.1 Benign prostatic hyperplasia with lower urinary tract symptoms; N39.43 Post-void dribbling; R39.15 Urgency of urination; N52.1 Erectile dysfunction due to diseases classified elsewhere; R00.0 Tachycardia, unspecified; Z23 Encounter for immunization; Z79.84 Long term (current) use of oral hypoglycemic drugs; Z79.899 Other long term (current) drug therapy | CPT/HCPCS: 83036; 90471; 90677 ==

== ENCOUNTER 2025-07-11 08:25 | Outpatient (REF) | payer OTHER, SELFPAY ==
--- NOTE | 2025-07-11 08:32 | ECG_ITS ---
Test Reason : TACHYCARDIA Blood Pressure : */* mmHG Vent. Rate : 72 BPM Atrial Rate : 72 BPM P-R Int : 192 ms QRS Dur : 76 ms QT Int : 372 ms P-R-T Axes : 66 37 65 degrees QTcB Int : 407 ms Normal sinus rhythm Normal ECG No previous ECGs available Referred By: Adalberto Stanford Electronically Signed By: Aren Jon
--- OUTSIDE RECORDS SUMMARY | 2025-07-11 09:03 | XMS_ITS | Clinical Summary ---
Author Organization [facility] Address [address] [address] Phone Care Team Providers Care [employer] Name Role Phone Roshni Clyde Joaquina DO Unavailable [phone] Pcp, Unknown Primary Care Provider Unavailabl e Allergies No known active allergies Medications GLUCOSE BLOOD test strip Inject 1 each into the skin 2 (two) times a day before meals. 200 strip 3 01/27/20 19 Active blood-glucose meter kit Use to test blood sugar twice a day; One Touch Verio 1 each 06/19/20 20 Active diclofenac sodium (VOLTAREN) 75 MG EC tablet TAKE 1 TABLET BY MOUTH TWICE A DAY 60 tablet 2 11/07/20 22 Active fluticasone propionate (FLONASE) 50 mcg/actuation nasal sprayIndications:S easonal allergic rhinitis, unspecified trigger 1 spray by Nasal route daily. 16 g 5 07/03/20 23 Active polyethylene glycol (MIRALAX) 17 gram/dose powderIndications: Chronic idiopathic constipation Take 17 g by mouth daily. 595 g 3 09/18/20 23 Active Additional Information Patient not taking.Reported on 10/21/2024 diclofenac sodium (VOLTAREN) 1 % GelIndications:Art hritis of right shoulder region APPLY 2 GRAMS TO AFFECTED AREA 4 TIMES A DAY 400 g 2 09/25/20 23 Active lidocaine (LIDODERM) 5 %Indications:Arthr itis of right shoulder region PLACE 1 PATCH TOPICALLY ONTO THE SKIN DAILY. REMOVE & DISCARD PATCH WITHIN 12 HOURS OR DIRECTED BY MD 30 patch 1 01/06/20 24 Active omeprazole (PRILOSEC) 20 MG capsuleIndications :Gastroesophageal reflux disease without esophagitis,Chest discomfort take 1 capsule by mouth every day 90 capsule 1 01/28/20 24 Active metFORMIN (GLUCOPHAGE-XR) 750 MG 24 hr tabletIndications: Type 2 diabetes mellitus with other diabetic arthropathy, without long-term current use of insulin Take 2 tablets (1,500 mg total) by mouth daily with breakfast. 180 tablet 3 10/21/20 24 Active losartan (COZAAR) 50 MG tabletIndications: Essential hypertension Take 1 tablet (50 mg total) by mouth every morning. 90 tablet 3 10/21/20 24 Active atenolol (TENORMIN) 25 MG tabletIndications: Essential hypertension Take 1 tablet (25 mg total) by mouth daily. 90 tablet 3 10/21/20 24 Active atorvastatin (LIPITOR) 40 MG tabletIndications: Mixed hyperlipidemia Take 1 tablet (40 mg total) by mouth every morning. 90 tablet 3 10/21/20 24 Active blood sugar diagnostic (ONETOUCH VERIO) Strp stripsIndications: Type 2 diabetes mellitus with other diabetic arthropathy, without long-term current use of insulin,Type 2 diabetes mellitus with diabetic neuropathic arthropathy, without long-term current use of insulin,Diabetes mellitus treated with injections of non-insulin medication Inject 1 each under the skin 2 (two) times a day. 100 strip 7 10/21/20 24 Active tamsulosin (FLOMAX) 0.4 mg CapIndications:Andrés ign prostatic hyperplasia without lower urinary tract symptoms Take 2 capsules (0.8 mg total) by mouth nightly at bedtime. 180 capsule 3 10/24/20 24 Active JARDIANCE 25 mg tabletIndications: Type 2 diabetes mellitus with other diabetic arthropathy, without long-term current use of insulin,Type 2 diabetes mellitus with diabetic neuropathic arthropathy, without long-term current use of insulin,Diabetes mellitus treated with injections of non-insulin medication TAKE 1 TABLET BY MOUTH EVERY DAY 90 tablet 11/17/19 25 Active OZEMPIC 0.25 mg or 0.5 mg (2 mg/3 mL) subcutaneous injection penIndications:Typ e 2 diabetes mellitus with other diabetic arthropathy, without long-term current use of insulin,Type 2 diabetes mellitus with diabetic neuropathic arthropathy, without long-term current use of insulin,Diabetes mellitus treated with injections of non-insulin medication INJECT 0.5 MG UNDER THE SKIN ONCE A WEEK. 3 mL 12/15/19 25 Active Active Problems Problem Noted Date Diagnosed Date Lower abdominal pain 06/26/2024 Assessment & Plan (06/26/2024 6:19 PM EDT): Benign exam today, suspect it is a muscular strain. No sign of hernia. No sign of appendicitis. I do not suspect he has a kidney stone. Diabetes mellitus treated wi th injections of non-insulin medication 06/26/2024 Assessment & Plan (10/22/2024 9:04 PM EST): Continue Ozempic, will titrate the dose depending on his A1c. Orders: semaglutide (OZEMPIC) 0.25 mg or 0.5 mg (2 mg/3 mL) subcutaneous injection pen; Inject 0.5 mg under the skin once a week. empagliflozin (JARDIANCE) 25 mg tablet; Take 1 tablet (25 mg total) by mouth daily. blood sugar diagnostic (ONETOUCH VERIO) Strp strips; Inject 1 each under the skin 2 (two) times a day. External Referral to Ophthalmology ([facility]) Assessment & Plan (06/26/2024 6:18 PM EDT): A1c is not controlled on Trulicity. Recommend he start Ozempic. [place] demonstrated proper use of medication in office today with the patient at the time of the visit. Reassess A1c in 3 months. I encouraged him to check his sugars at home. Arthritis of carpometacarpal (CMC) joint of left thumb 04/22/2024 Assessment & Plan (04/22/2024 7:17 PM EDT): Tenderness on palpation exam of the CMC joint of the left hand. He has had this injected in the past with orthopedics. Recommend he return to hand surgery considering for further management. Defer imaging to orthopedics. Chronic idiopathic constipation 09/18/2023 Arthritis of right shoulder region 07/01/2022 Seasonal allergic rhinitis 07/01/2022 Assessment & Plan (07/01/2022 7:52 PM EDT): OTC nasal spray advised daily as needed for symptoms, stop if nosebleeds. May also use OTC nondrowsy antihistamines. Both are not available by prescription any longer. Gastroesophageal reflux disease without esophagi tis 05/31/2021 Assessment & Plan (06/05/2023 8:43 AM EDT): Increased symptoms, will trial PPI. Suspect this chest pain is related to gastritis/esophagitis should resolve with omeprazole. If no better in 2 weeks he is to call the office. Assessment & Plan (05/31/2021 9:33 AM EDT): Intermittent use of pantoprazole for heartburn, continue current regimen. Chronic right shoulder pain 09/18/2020 Assessment & Plan (09/06/2021 8:49 AM EDT): [place] [facility] [place] [facility] requested, disc to be sent to radiology for uploading. Bilateral carpal tunnel syndrome 07/31/2019 Assessment & Plan (07/31/2019 9:17 PM EDT): Related in part to diabetes, if worsening with weakness in the hands, recommend hand surgery eval. Paronychia of finger, left 04/29/2019 Assessment & Plan (04/29/2019 9:11 AM EDT): Paronychia with abscess. This could be MRSA so I will treat the patient with Bactrim. Sent for culture. He is not seeing any improvement in the next 48 hours her symptoms are worsening is to contact us immediately. Mixed hyperlipidemia 01/09/2019 Assessment & Plan (10/22/2024 9:04 PM EST): Continue statin, lifestyle changes discussed. Orders: atorvastatin (LIPITOR) 40 MG tablet; Take 1 tablet (40 mg total) by mouth every morning. Assessment & Plan (04/22/2024 7:15 PM EDT): Continue atorvastatin. Assessment & Plan (01/10/2024 1:50 PM EST): Stable, continue current regimen. Assessment & Plan (09/18/2023 12:12 PM EST): Stable, continue current regimen. Assessment & Plan (07/03/2023 12:33 PM EDT): Recheck lipids with next of labs, continue atorvastatin 40 mg daily. Lifestyle changes discussed limit portions. Assessment & Plan (06/05/2023 8:10 AM EDT): At target, continue current regimen. Recheck lipids in January 2024. Assessment & Plan (10/31/2022 9:51 PM EST): Stable, continue current regimen. Assessment & Plan (06/30/2022 8:39 AM EDT): Not at target, further dietary adjustments needed. Assessment & Plan (02/02/2022 10:53 PM EDT): Due for lipids, continue statin. Assessment & Plan (09/08/2021 5:09 PM EDT): Stable on atorvastatin, continue current medication, check lipids next year. Assessment & Plan (05/31/2021 9:33 AM EDT): Stable on atorvastatin, lipids not due yet, recheck in 6 months. Continue lifestyle changes. Assessment & Plan (02/17/2021 7:09 PM EDT): LDL is at target. Continue current regimen. Assessment & Plan (07/31/2019 9:15 PM EDT): Stable, continue current regimen. Assessment & Plan (01/09/2019 8:10 PM EST): Stable, continue current regimen. 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 Suboptimal adherence as he forgot his medication while traveling. Orders: semaglutide (OZEMPIC) 0.25 mg or 0.5 mg (2 mg/3 mL) subcutaneous injection pen; Inject 0.5 mg under the skin once a week. empagliflozin (JARDIANCE) 25 mg tablet; Take 1 tablet (25 mg total) by mouth daily. blood sugar diagnostic (ONETOUCH VERIO) Strp strips; Inject 1 each under the skin 2 (two) times a day. External Referral to Ophthalmology ([facility]) Assessment & Plan (10/22/2024 9:04 PM EST): Previously uncontrolled. Inadequate adherence to lifestyle changes. Overdue for labs, recommend A1c today. He is to continue with Ozempic, metformin, Jardiance. He is advised to call to schedule eye exam. Orders: metFORMIN (GLUCOPHAGE-XR) 750 MG 24 hr tablet; Take 2 tablets (1,500 mg total) by mouth daily with breakfast. Hemoglobin A1c; Future Microalbumin/creatinine ratio, random urine; Future Lipid panel; Future CBC and differential; Future Comprehensive metabolic panel; Future semaglutide (OZEMPIC) 0.25 mg or 0.5 mg (2 mg/3 mL) subcutaneous injection pen; Inject 0.5 mg under the skin once a week. empagliflozin (JARDIANCE) 25 mg tablet; Take 1 tablet (25 mg total) by mouth daily. blood sugar diagnostic (ONETOUCH VERIO) Strp strips; Inject 1 each under the skin 2 (two) times a day. External Referral to Ophthalmology ([facility]) Assessment & Plan (06/26/2024 6:18 PM EDT): Continue metformin, Jardiance. Assessment & Plan (04/22/2024 7:15 PM EDT): Poorly controlled diabetes with risk factors for heart disease, stroke. Encourage patient to consider switch to a different GLP-1 RA as he is not able to access higher dosage that he needs for Trulicity. He is agreeable. Will try and put through a prior authorization if it is necessary I do not suspect this to be the case. Continue metformin, Jardiance. It is essential that he work on portions of his carbs to improve his glycemic control. Assessment & Plan (01/10/2024 1:46 PM EST): Not at target, will recheck labs before visit. Hopefully with diet, better adherence to medication his A1c will improve. He is counseled that he may have further complications if he does not make sustained changes. Assessment & Plan (09/18/2023 12:13 PM EST): Sugars not at target, increase Trulicity to 3 mg weekly Continue metformin and Jardiance. Increase physical activity, limit carbs. Annual eye exam Reassess in the spring. Assessment & Plan (07/03/2023 12:33 PM EDT): Not at target. Patient is advised to take metformin in morning and evening as he was excluding the morning dose previously. Increase trulicity to 3 mg weekly Continue jardiance. He should reschedule his August follow-up with me for sometime in September after of his had repeat check labs in 3 months. Assessment & Plan (06/05/2023 8:11 AM EDT): Due for labs, eye exam. Partially adherent to diet. Not checking home readings. Assessment & Plan (10/31/2022 9:46 PM EST): Not at target, working on diet, not taking metformin as prescribed, advised to increase to twice daily dosing as recommended previously, continue Trulicity, Jardiance. Reassess at followup. Assessment & Plan (07/01/2022 7:48 PM EDT): Not at target, dietary indiscretion, in spite of Trulicity, Jardiance, Metformin. He is cautioned regarding risk for complications of poorly controlled diabetes. He is advised of importance in maintaining annual eye exams. Assessment & Plan (01/31/2022 8:53 AM EDT): Due for labs, previously decent control previously. Check labs, now. Assessment & Plan (09/06/2021 8:50 AM EDT): Increase trulicity to 3mg weekly, continue metformin, jardiance. Assessment & Plan (05/31/2021 9:33 AM EDT): Previously controlled, check A1c now, microalbumin. Continue current medications. Eye exam is scheduled in a few months. Continue to work on diet. Assessment & Plan (02/17/2021 7:09 PM EDT): A1c not done on his most recent visit to the lab. We will look into this. In the meantime I have advised him to have blood work done after our visit today to check his A1c. Increase Trulicity to 1.5 mg weekly, otherwise continue Metformin and Jardiance. The Metformin, I recommended that he continue taking twice daily dosing. During restorationist observance of , I recommended that he take his first dose of Metformin in the early afternoon, second dose in the evening. He should not see hypoglycemic effect from Metformin. Assessment & Plan (07/31/2019 9:15 PM EDT): Not quite at target, but trending in the right direction. Neuropathy is improving. Reviewed diet, work to further limit carbs to 60g per day. He does not want to go on insulin or injection therapies for diabetes. He is tolerating metformin and empagliflozin. Assessment & Plan (04/22/2019 10:01 AM EDT): Continue jardiance, increase metformin to 2g daily again, stay at this dose during fasts as well for now. CEDE in 2 weeks for education, [place]. [place] [address] [place]. Assessment & Plan (01/26/2019 8:43 AM EDT): Tolerating jardiance, will titrate up the dose, continue metformin. Needs new glucometer. Not testing at home. Assessment & Plan (01/09/2019 8:09 PM EST): Not at target on oral therapy. Will refer to diabetes education for teaching and eye exam. Continue metformin. Stop glimepiride. Start empagliflozin. Side effects discussed. He is encouraged to check sugars fasting and 2 hrs after mealtime. He will reassess response to treatment in a month. Assessment & Plan (12/18/2017 9:02 AM EST): Check labs, he reports early neuropathic numbness in the L foot. Osteoarthritis of knee 12/18/2017 Assessment & Plan (07/01/2022 7:49 PM EDT): Topical diclofenac for knees as well as shoulder. He agrees to avoid use of oral diclofenac, other NSAIDS. Assessment & Plan (12/18/2017 9:01 AM EST): No effusion, moderate symptoms Plantar fasciitis 12/18/2017 Assessment & Plan (04/22/2024 7:16 PM EDT): Left greater than right, likely inflamed due to his poor diabetes control. Recommend heel cushion inserts. Porokeratosis 12/18/2017 Tendonitis 12/18/2017 Tinea pedis 12/18/2017 Essential hypertension 12/18/2017 Assessment & Plan (10/22/2024 9:04 PM EST): Stable, continue current medications. Orders: losartan (COZAAR) 50 MG tablet; Take 1 tablet (50 mg total) by mouth every morning. atenolol (TENORMIN) 25 MG tablet; Take 1 tablet (25 mg total) by mouth daily. Assessment & Plan (04/22/2024 7:15 PM EDT): Stable blood pressure, continue current regimen. Assessment & Plan (01/10/2024 1:49 PM EST): Stable, continue current regimen. Assessment & Plan (09/18/2023 12:15 PM EST): Stable blood pressures, continue current regimen. Assessment & Plan (06/05/2023 8:09 AM EDT): Near goal, increase losartan to 100mg daily. Continue atenolol. Assessment & Plan (10/31/2022 9:52 PM EST): Stable, continue current regimen. Assessment & Plan (07/01/2022 7:47 PM EDT): Not at target, advised med adjustment is appropriate. Patient declines and will work on lifestyle changes to bring down BP. He agrees to re-evaluate in 3 months. Assessment & Plan (01/31/2022 9:00 AM EDT): Stable, continue current regimen. Assessment & Plan (09/06/2021 8:59 AM EDT): Stable, continue current regimen. Assessment & Plan (05/31/2021 9:33 AM EDT): Stable on current medications. Continue lifestyle changes, losartan, atenolol. Assessment & Plan (02/17/2021 7:09 PM EDT): Reasonably good control, continue current regimen. Assessment & Plan (07/31/2019 9:15 PM EDT): Stable, continue current regimen. Assessment & Plan (04/22/2019 10:00 AM EDT): Stable, continue current medication. Assessment & Plan (01/09/2019 8:07 PM EST): Stable, continue current regimen. Benign prostatic hyperplasia without lower urinary tract symptoms 12/18/2017 Overview (01/14/2020): Normal urine cytology Assessment & Plan (06/05/2023 8:42 AM EDT): Continued lower urinary tract symptoms in spite of tamsulosin. Recommend follow- up with urology. Assessment & Plan (05/31/2021 9:33 AM EDT): Stable on tamsulosin, continue current regimen. Assessment & Plan (02/17/2021 7:10 PM EDT): Tolerating tamsulosin, residual nocturia, not interested in further therapies. He will return to see the urologist this summer for annual follow-up. Assessment & Plan (07/31/2019 9:17 PM EDT): Tolerating tamsulosin, stable voiding habits. Assessment & Plan (04/22/2019 10:00 AM EDT): Increase tamsulosin to 2 tablets, reassess. Assessment & Plan (01/09/2019 8:10 PM EST): Stable, continue tamsulosin. Work up for hematuria was benign. Assessment & Plan (12/18/2017 9:01 AM EST): No symptoms Resolved Problems Problem Noted Date Diagnosed Date Resolved Date COVID-19 virus infection 02/22/2020 Overview (02/22/2020): [place] [facility] Immunizations Immunization Administration Dates Next Due COVID-19 (Pre-08/31) Pfizer Vaccine, mRNA, PF 11/15/2020,10/25/2020 Influenza Quadrivalent MDCK w/Preservative IM 08/09/2018 Influenza Quadrivalent Prese rvative Free IM 08/13/2023,08/14/2022,08/13/2021,07/29,08/23/2019,08/06/2017,08/27/2015 Influenza Quadrivalent w/ Pr eservative IM 08/23/2021,08/20/2016 Pneumococcal conjugate PCV13 01/26/2019 Pneumococcal polysaccharide PPSV23 12/30/2019 Td (adult),2 Lf Tetanus Toxo id, PF, Adsorbed 04/22/2019 Zoster recombinant 06/30/2022,02/15/2021 Family History Medical History Relation Comments No Known Problems Daughter 1 No Known Problems Daughter 2 Diabetes Father Coronary artery disease Mother Breast cancer Sister 1 Coronary artery disease Sister 2 No Known Problems Son 1 No Known Problems Son 2 Relation Status Comments Daughter 1 Alive Daughter 2 Alive Father Mother Sister 1 Alive Sister 2 Alive Son 1 Alive Son 2 Alive Social History Tobacco Use Types Packs/Day Years Used Date Smoking Tobacco: Former Cigarettes 0.5 14 1 1 - 2004 Smokeless Tobacco: Never Tobacco Cessation:Counseling Given: Not Answered Alcohol Use Standard Drinks/Week Comments No 0 (1 standard drink = 0.6 oz pur e alcohol) Child or Family Care Answer Date Record ed Do you have problems with on e of the following making it difficult for you to work, study, or receive health care? No 07/03/2023 Education Answer Date Recorded Are you interested in more education? Not on tom e 06/30/2024 Are you concerned about learning? Not on file 06/30/2024 No 06/30/2024 No 06/30/2024 Food Answer Date Recorded Within the past 6 months we worried whether our food would run out before we got money to buy more. Never True 07/03/2023 Within the past 6 months the food we bought just didn't last and we didn't have enough money to get more. Never True Residential Stability Answer Date Recor ded What is your housing situation today? I have elena sing 07/03/2023 How many times have you move d in the past 12 months? Zero (I did not move) 07/03/2023 Paying for Meds Answer Date Recorded Do you have trouble paying for medicines? No 07/03/2023 Paying Utility Bills Answer Date Record ed Do you have trouble paying your heating or elect ricity bill? No 07/03/2023 Transportation Answer Date Recorded Has the lack of transportati on kept you from medical appointments or from getting medications? No 07/03/2023 Unemployment Answer Date Recorded Are you currently unemployed or working on a part-time or temporary basis, and looking for work? No 06/30/2022 Digital Access Answer Date Recorded No 07/04/2025 No 07/04/2025 Reliable internet access at home? Not on file 07/04/2025 Device with a working camera? Not on file Intimate Partner Violence Answer Date R ecorded Denied Basic Needs Not on file 07/03/2023 In the past 12 months have y ou been in a relationship with a person who hurts, threatens, or tries to control you? No 07/03/2023 Worried food would run out Not on file 07/03 In the past 12 months have y ou been in a relationship with a person who hurts, threatens, or tries to control you? No 07/03/2023 Sex and Gender Information Value Date Recorded Sex Assigned at Male 07/01/2022 7:36 PM EDT Legal Sex Male 4:29 PM EST Gender Identity Male 07/01/2022 7:36 PM EDT Sexual Orientation Straight 03/20/2022 7: 31 PM EDT Occupation Industry Job Start Date Job End Date [employer] Not on file Not on file Not on file Last Filed Vital Signs Vital Sign Reading Time Taken Comments Blood Pressure 100/50 10/21/2024 9:39 AM EST Pulse 68 10/21/2024 9:39 AM EST Temperature 36.2 C (97.1 F) 10/21/2024 9:39 AM EST Respiratory Rate 20 09/18/2023 8:20 AM EST Oxygen Saturation 98% 10/21/2024 9:39 AM EST Inhaled Oxygen Concentration - - Weight 93.9 kg (207 lb) 06/24/2024 8:46 AM EDT Height 182.9 cm (6') 06/24/2024 8:46 AM EDT Body Mass Index 28.07 06/24/2024 8:46 AM EDT Plan of Treatment Health Maintenance Due Date Last Done Comments COLOGUARD 2001 FIT TEST 2001 FOBT 2001 SIGMOIDOSCOPY 2001 VIRTUAL COLONOSCOPY 2001 RSV VACCINE (1 - Risk 60-74 years 1-dose series) 2016 DEPRESSION SCREENING 07/03/2024 07/03/2023 HEMOGLOBIN A1C 09/21/2024 06/21/2024, 0601/2024, 09/16/2023, Additional history exists DIABETIC EYE EXAM 12/18/2024 12/18/2023, , 08/06/2021, Additional history exists PNEUMOCOCCAL VACCINES (50+ years) (3 of 3 - PCV20 or PCV21) 12/30/2024 12/30/2019, 01/26/2019 COVID-19 VACCINE ( - 2024-25 season) 2025 08/02/2024, 2023, 11/06/2022, Additional history exists BLOOD PRESSURE 04/21/2025 10/21/2024 INFLUENZA VACCINE (#1) 2025 , 08/13/2023, 08/14/2022, Additional history exists POTASSIUM LEVEL 06/21/2025 06/21/2024, 04/09, 09/16/2023, Additional history exists CREATININE LEVEL 10/24/2025 10/24/2024, , 04/21/2024, Additional history exists COLONOSCOPY 02/12/2028 02/11/2018 COLORECTAL CANCER SCREENING 02/12/2028 Adult Td,Tdap Booster 04/22/2029 04/22/2019 ZOSTER VACCINES Completed 06/30/2022, 02/15/2021 HEPATITIS C SCREENING Completed 09/19/2022 SMOKING STATUS SCREENING (Once After 26 Yrs) Completed 10/21/2024 HEPATITIS A VACCINES Aged Out No long er eligible based on patient's age to complete this topic HIB VACCINES Aged Out No longer eligi ble based on patient's age to complete this topic MENINGOCOCCAL VACCINES (ACWY) Aged Out No longer eligible based on patient's age to complete this topic MENINGOCOCCAL VACCINES (B) Aged Out N o longer eligible based on patient's age to complete this topic Goals Goal Patient Goal Type Associated Problems Recent Progress Patient-Stated? Author Have 3 meals a day Diet No Víctor Augustine MD Reduce sugar intake to 60 grams per day Diet No Víctor Augustine MD Note: 1/2 banana maximum per day. Limit bread to 1 slice per day. Medical Devices Implanted Type Area Service Line Coordinator Device Identifier Shelf Expiration Date Model / Serial / Lot [place] Suture 4.5mm Arthroscopy Reelx Stt Peek Ss Core Knotless Shapr Tip Expandable Bx/5ea - [id number] Implanted:Qty: 3 on 03/21/2022 by Clyde Barakat DO at [facility] Right: Acromial Process [employer] 10/01/2023 [id number] [place] 4.75mm Suture Healicoil Regensorb Repair 3 Sutures Kt/3 - [id number] Implanted:Qty: 1 on 03/21/2022 by Clyde Barakat DO at [facility] Right: Acromial Process [employer] 12/11/2024 [id number] / / [id number] Procedures Procedure Name Priority Date/Time Associated Diagnosis Comments COMPREHENSIVE METABOLIC PANEL Routine 10/24/2024 3:20 PM EST Type 2 diabetes mellitus with other diabetic arthropathy, without long-term current use of insulin HEMOGLOBIN A1C Routine 06/21/2024 3:49 PM EDT Type 2 diabetes mellitus with diabetic neuropathic arthropathy, without long-term current use of insulin BASIC METABOLIC PANEL Routine 06/21/2024 3:49 PM EDT Type 2 diabetes mellitus with diabetic neuropathic arthropathy, without long-term current use of insulin HM DIABETES EYE EXAM FOR RESULT ENTRY ONLY Routine 12/18/2023 2:49 PM EST HEPATITIS C ANTIBODY, QUALITATIVE Routine 09/19/2022 9:07 AM EST Need for hepatitis C screening test ENDOSCOPY, COLON 02/11/2018 8:33 AM EDT from Last 3 Months or Most Recently Relevant to Health Maintenance Results * Comprehensive metabolic panel (10/24/2024 3:20 PM EST) Blood us Víctor Augustine MD LAB BLOOD ORDERABLES Final Res ult [facility] [address] [place] [address] * (ABNORMAL) Hemoglobin A1c (06/21/2024 3:49 PM EDT) HEMOGLOBIN A1C 9.7(H) 4.3 - 5.8 % [facility] Blood 06/21/2024 3:49 PM EDT 06/21/2024 3:53 PM EDT Result [facility] Víctor Augustine MD LAB BLOOD ORDERABLES Final Res ult Performing Organization Address [facility]/ZIP Co de Phone Number [address] [address] * (ABNORMAL) Basic metabolic panel (06/21/2024 3:49 PM EDT) SODIUM 138 133 - 146 mmol/L [facility] CHLORIDE 101 96 - 108 mmol/L [facility] POTASSIUM 4.2 3.3 - 5.1 mmol/L [facility] CO2 28 21 - 35 mmol/L [facility] BUN 19 6 - 19 mg/dL [facility] CREATININE 0.80 0.5 - 1.5 mg/dL [facility] GLUCOSE 148(H) 70 - 99 mg/dL [facility] CALCIUM 9.3 8.4 - 10.3 mg/dL [facility] EGFR 97 >59 mL/min/1.7 3m2 [facility] Comment:Estimated glomerular filtration rate calculated using the CKD-EPI refit equation. ANION GAP 13 10 - 20 mmol/L [facility] Blood 06/21/2024 3:49 PM EDT 06/21/2024 3:53 PM EDT Result [facility] Víctor Augustine MD LAB BLOOD ORDERABLES Final Res ult Performing Organization Address [facility] Co de Phone Number [address] [address] * DIABETES EYE EXAM FOR RESULT ENTRY ONLY (12/18/2023 2:49 PM EST) Terry Bae MD HEALTH MAINTENANCE Final Result * Hepatitis C antibody, qualitative (09/19/2022 9:07 AM EST) HCV NON-REACTIV E NON-REACTI VE [facility] Blood 09/19/2022 9:07 AM EST 09/19/2022 9:09 AM EST Víctor Augustine MD LAB BLOOD ORDERABLES Final Res ult [facility] [address] [place] [address] * ENDOSCOPY, COLON (02/11/2018 8:33 AM EDT) Narrative Transcriptions Arminda Roe MD - 02/11/2018 8:33 AM EDT Patient Name: Pricila Tony Attending MD:: ARMINDA ROE MD Procedure Date: 02/11/2018 8:33 AM Date of : 1955 Age: 62 Admit Type: Outpatient Gender: Male Room: [facility] Referring MD: MARIS ROBLEDO Exam Type: Colonoscopy Indications: Screening for colorectal malignant neoplasm, Last colonoscopy 10 years ago, (Prior procedure report unavailable) Medications: Propofol per Anesthesia Procedure: Informed consent was obtained from the patient after discussion of the indications, limitations,alternatives, benefits, and risks of the procedure. Risksspecifically discussed include but are not limited to medication reactions, missed lesions, bleeding, perforation, orthe need for emergent surgery. Throughout the procedure, the patient's blood pressure, pulse, end-tidal CO2, and oxygen saturations were monitored continuously. The Olympus adult variable colonoscope CF-[id number] #4 was introduced through the anus and advanced to theterminal ileum, with identification of the appendiceal orificeand IC valve. The terminal ileum, ileocecal valve,appendiceal orifice, and rectum were photographed. The colonoscopywas performed without difficulty. The patient tolerated the procedure well. The quality of the bowel preparationwas excellent. The bowel preparation used was GoLYTELY. Complications: No immediate complications. Estimated blood loss:None. Findings: The perianal and digital rectal examinations werenormal. Pertinent negatives include normal prostate (size,shape, and consistency). The entire examined colon appeared normal on direct and retroflexion views. The terminal ileum appeared normal. Retroflexion in the right colon was performed. Impression: - The entire examined colon is normal on direct and retroflexion views. - The examined portion of the ileum was normal. - No specimens collected. Recommendation: - Repeat colonoscopy in 10 years for screeningpurposes. ARMINDA ROE MD 02/11/2018 9:03:41 AM This report has been signed electronically. Number of Addenda: 0 Note Initiated On: 02/11/2018 8:33 AM Procedure Code(s): --- Professional --- 62196, Colonoscopy, flexible; diagnostic, including collection of specimen(s) by brushing or washing, when performed (separateprocedure) --- Technical --- 97922, Colonoscopy, flexible; diagnostic, including collection of specimen(s) by brushing or washing, when performed (separateprocedure) Diagnosis Code(s): --- Professional --- Z12.11, Encounter for screening for malignant neoplasm of colon --- Technical --- Z12.11, Encounter for screening for malignant neoplasm of colon CPT copyright 2016 [employer]. All rights reserved. The codes documented in this report are preliminary and upon solar electric practitioner reviewmay be revised to meet current compliance requirements. [address] [place] [address] Maris Robledo MD GI PROCEDURE ORDERABLES Edited Result - Final from Last 3 Months or Most Recently Relevant to Health Maintenance Insurance MEDICARE A [facility] [id number] MEDICARE A [facility] [id number] [id number] MEDICARE A MEDICARE A MEDICARE A [facility] ADMIN[address] [id number] MEDICARE A MEDICARE A [facility] [id number]AT[employer] MEDICARE A [facility] [id number] Member Subscriber Plan / [facility] Name:Clarke Jimenezd RiaMonica Relation to Subscriber:Self Name:Clarke Jimenezd Cathy Payer ID:[id number] (NAIC) Type:PPO Address: [address] [place] [id number] [place] [id number] MEDICARE A [facility] ADMINISTRATORS Care Teams Cattle And Wheat Farmer Relationship Specialty Start Date End Date Pcp, Unknown PCP - General 01/06/25 Clyde Barakat DO [address] [place] [address] [facility], [place] [address] [email or web address] Historical LMR Provider 08/29/17 Additional Source Comments The information contained in this document represents components of the legal health record. It is not the complete legal health record.[facility]
--- OUTSIDE RECORDS SUMMARY | 2025-07-11 09:03 | XMS_ITS | Encounter Summary ---
Author Organization [facility] Address [address] [facility] [address] [place] [address] Phone Care Team Providers Care Line Clearance Foreman Name Role Phone Clyde Barakat DO Unavailable [phone] Víctor Augustine MD Primary Care Provider [phone] Pcp, Unknown Primary Care Provider Unavailabl e Encounter Details Date Type Department Care Team (Late st Contact Info) Description 03/21/2022 Procedure Pass [place] Admitting Dept - Virtual Department [address] [place] [address] Social History Tobacco Use Types Packs/Day Years Used Date Smoking Tobacco: Former Cigarettes 0.5 14 1 1 - 2004 Smokeless Tobacco: Never Alcohol Use Standard Drinks/Week Comments No 0 (1 standard drink = 0.6 oz pur e alcohol) Child or Family Care Answer Date Record ed Do you have problems with on e of the following making it difficult for you to work, study, or receive health care? No 05/31/2021 Education Answer Date Recorded Are you interested in help w ith more adult education (for example, completing high school, GED, job training, learning the Welsh language, technical skills, or developing parenting skills)? No 05/31/2021 Are you concerned about learning? Not on file 05/31/2021 Not on file 05/31/2021 Not on file 05/31/2021 Food Answer Date Recorded Within the past 6 months we worried whether our food would run out before we got money to buy more. Never True 05/31/2021 Within the past 6 months the food we bought just didn't last and we didn't have enough money to get more. Never True Paying for Meds Answer Date Recorded Do you have trouble paying for medicines? No 05/31/2021 Paying Utility Bills Answer Date Record ed Do you have trouble paying your heating or elect ricity bill? No 05/31/2021 Transportation Answer Date Recorded Has the lack of transportati on kept you from medical appointments or from getting medications? 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 Non-Specific Active Suici elisha Thoughts (Past 1 Month) No 03/21/2022 6:24 AM EDT Matilde Montague RN documented as of this encounter Plan of Treatment Not on file documented as of this encounter Goals Goal Patient Goal Type Associated Problems Recent Progress Patient-Stated? Author Have 3 meals a day Diet No Víctor Augustine MD Reduce sugar intake to 60 grams per day Diet No Víctor Augustine MD Note: 1/2 banana maximum per day. Limit bread to 1 slice per day. documented as of this encounter Visit Diagnoses Not on filedocumented in this encounter Additional Health Concerns Assessment Noted Time PHQ-2 Depression Total Score: 0 05/31/20 21 8:29 AM EDT documented as of this encounter Care Teams Line Clearance Foreman Relationship Specialty Start Date End Date Víctor Augustine MD [address] [place] [address], [address] [place] [address] PCP - General Internal Medicine 12/31/18 01/05/25 Pcp, Unknown PCP - General 01/06/25 Clyde Barakat DO [address] [place] [address] Orthopedics & Sports Medicine, [place] [address] [email or web address] Historical LMR Provider 08/29/17 documented as of this encounter Additional Source Comments The information contained in this document represents components of the legal health record. It is not the complete legal health record.[facility]
--- OUTSIDE RECORDS SUMMARY | 2025-07-11 09:03 | XMS_ITS | Encounter Summary ---
Author Organization [facility] Address [address] [facility] [address] [place] [address] Phone Care Team Providers Care Evaporator Helper Name Role Phone Roshni Clyde Kunz DO Unavailable [phone] Nichelle Rollins DPM Unavailable Unavailable Mirza Maynard MD Unavailable [phone] Víctor Augustine MD Primary Care Provider Pcp, Unknown Primary Care Provider Unavailabl e Encounter Details Date Type Department Care Team (Late st Contact Info) Description 05/16/2020 Procedure Pass [facility], [address] [address] Social History Tobacco Use Types Packs/Day Years Used Date Smoking Tobacco: Former Cigarettes Q uit: 12/18/2006 Smokeless Tobacco: Never Alcohol Use Standard Drinks/Week Comments No 0 (1 standard drink = 0.6 oz pur e alcohol) Sex and Gender Information Value Date Recorded Sex Assigned at Male 07/01/2022 7:36 PM EDT Legal Sex Male 4:29 PM EST Gender Identity Male 07/01/2022 7:36 PM EDT Sexual Orientation Straight 03/20/2022 7: 31 PM EDT documented as of this encounter Last Filed Vital Signs Vital Sign Reading Time Taken Comments Blood Pressure - - Pulse - - Temperature - - Respiratory Rate - - Oxygen Saturation - - Inhaled Oxygen Concentration - - Weight 88.5 kg (195 lb) 05/19/2020 9:17 AM EDT Height 185.4 cm (6' 1 ) 05/19/2020 9:17 AM EDT Body Mass Index 25.73 05/19/2020 9:17 AM EDT documented in this encounter Plan of Treatment Not on [...] Noted Time PHQ-2 Depression Total Score: 0 12/30/19 20 9:03 AM EST documented as of this encounter Care Teams Evaporator Helper Relationship Specialty Start Date End Date Víctor Augustine MD [address] [place], [place] [id number] [place] [address] [email or web address] PCP - General Internal Medicine 12/31/18 01/05/25 Pcp, Unknown PCP - General 01/06/25 Clyde Barakat DO [address] [place] [address] Orth[facility] Sports Medicine, [place] [address] [email or web address] Historical LMR Provider 08/29/17 Nichelle Rollins DPM [address] [place] [address] Historical LMR Provider 08/29/1711/16/21 Mirza Maynard MD [address] [place] [address] [email or web address] Historical LMR Provider 08/29/17 2 documented as of this encounter Additional Source Comments The information contained in this document represents components of the legal health record. It is not the complete legal health record.[facility]
--- OUTSIDE RECORDS SUMMARY | 2025-07-11 09:03 | XMS_ITS | Encounter Summary ---
Author Organization [facility] Address [address] [employer] [facility] [address] [place] [address] Phone Care Team Providers Care Judicial Law Clerk Name Role Phone Clyde Barakat DO Unavailable [phone] Nichelle Rollins DPM Unavailable Unavailable Mirza Maynard MD Unavailable [phone] Arcadio Robledo MD Primary Care Provider [phone] Víctor Augustine MD Primary Care Provider [phone] Pcp, Unknown Primary Care Provider Unavailabl e Encounter Details Date Type Department Care Team (Late st Contact Info) Description 02/11/2018 Procedure Pass [facility] Endoscopy Admitting Dept Virtual Department [address] [place] [address] Social History Tobacco Use Types Packs/Day Years [...] PM EDT documented as of this encounter Plan of Treatment Not on file documented as of this encounter Visit Diagnoses Not on filedocumented in this encounter Additional Health Concerns Infection Onset Date Last Indicated Resolved Time COVID-19 Comment:Positive Test done at [facility]. 02/23/2020 03/17/2020 04/27/2020 3:33 PM E DT documented as of this encounter Care Teams Judicial Law Clerk Relationship Specialty Start Date End Date Arcadio Robledo MD [address] [facility], [address] [place] [address] PCP - General Internal Medicine 09/16/17 12/30/18 Víctor Augustine MD [address] [facility] [place] [address] PCP - General Internal Medicine 12/31/18 01/05/25 Pcp, Unknown PCP - General 01/06/25 Clyde Barakat DO [address] [place] [address] Orth[facility] Sports Medicine, [place] [address] Historical LMR Provider 08/29/17 Nichelle Rollins DPM [address] [place] [address] Historical LMR Provider 08/29/1711/16/21 Mirza Maynard MD [address] [place] [address] [email or web address] Historical LMR Provider 08/29/17 2 documented as of this encounter Additional Source Comments The information contained in this document represents components of the legal health record. It is not the complete legal health record.[facility]
--- OUTSIDE RECORDS SUMMARY | 2025-07-11 09:03 | XMS_ITS | Encounter Summary ---
Author Organization [facility] Address [address] [facility] [address] [place] [address] Phone Care Team Providers Care Embossing Machine Tender Name Role Phone Clyde Barakat Joaquina DO Unavailable Nichelle Rollins DPM Unavailable Unavailable Mirza Maynard MD Unavailable [phone] Arcadio Robledo MD Primary Care Provider [phone] Víctor Augustine MD Primary Care Provider [phone] Pcp, Unknown Primary Care Provider Unavailabl e Encounter Details Date Type Department Care Team (Latest Contact Info) Description 12/02/2018 Transcribe Orders [facility] Laboratory [address] [id number] Kristal Gibbons PA [address] [phone] [email or web address] Gross hematuria (Primary Dx) Social History Tobacco Use Types Packs/Day Years [...] on file documented as of this encounter Results * Creatinine/eGFR (12/02/2018 10:58 AM EST) CREATININE 0.90 0.5 - 1.5 mg/dL [facility] EGFR 91 >59 mL/min/1.7 3m2 [facility] Comment:If patient is black, multiply result by 1.159. Estimated glomerular filtration rate calculated using the CKD-EPI equation. Blood 12/02/2018 10:5 8 AM EST 12/02/2018 11:02 AM EST us Kristal JONES LAB BLOOD ORDERABLES Final Result [address] [address] * BUN (12/02/2018 10:58 AM EST) BUN 13 6 - 19 mg/dL [facility] Blood 12/02/2018 10:5 8 AM EST 12/02/2018 11:02 AM EST Kristal JONES LAB BLOOD ORDERABLES Final Result [address] [address] * PSA (screening) (12/02/2018 10:58 AM EST) PSA 1.05 0 - 4.00 ng/mL [facility] Blood 12/02/2018 10:5 8 AM EST 12/02/2018 11:02 AM EST Kristal JONES LAB BLOOD ORDERABLES Final Result [address] [address] documented in this encounter Visit Diagnoses Diagnosis Gross hematuria- Primary documented in this encounter Additional Health Concerns Infection Onset Date Last Indicated Resolved Time COVID-19 Comment:Positive Test done at [facility]. 02/23/2020 03/17/2020 04/27/2020 3:33 PM E DT documented as of this encounter Care Teams Embossing Machine Tender Relationship Specialty Start Date End Date Arcadio Robledo MD [address] [facility] [place] [address] PCP - General Internal Medicine 09/16/17 12/30/18 Víctor Augustine MD [address] [facility] [place] [address] PCP - General Internal Medicine 12/31/18 01/05/25 Pcp, Unknown PCP - General 01/06/25 Clyde Barakat DO [address] [place] [address] Orthopedics & Sports Medicine, [facility] [place] [address] Historical LMR Provider 08/29/17 Nichelle Rollins DPM [address] [place] [address] Historical LMR Provider 08/29/1711/16/21 Mirza Maynard MD [address] [place] [address] Historical LMR Provider 08/29/17 2 documented as of this encounter Additional Source Comments The information contained in this document represents components of the legal health record. It is not the complete legal health record.[facility]
[2025-07-11 09:28] LABS: Appearance Urine Clear; Glucose Urine UA >=1000 mg/dL (Negative); PH 5.0 (5.0-9.0); Specific Gravity - Urine >= 1.030 (1.005-1.025); UMIC TRIGGER UACC YES
== END 2025-07-11 08:26 | disposition home or self-care (01) ==
LOC: HO.LAB 08:25
PROVIDERS: Visit Provider Physician Assistant
DX: R00.0 Tachycardia, unspecified (principal); R30.0 Dysuria; N39.43 Post-void dribbling
CPT/HCPCS: 81001; 93005

== ENCOUNTER → 2025-07-11 08:32 | Outpatient (BNV) | payer OTHER, SELFPAY | PROVIDERS: Visit Provider Internal Medicine Cardiovascular Disease | DX: R00.0 Tachycardia, unspecified (principal) | CPT/HCPCS: 93010 ==

== ENCOUNTER 2025-07-13 09:13 | Outpatient (AMB) | payer OTHER, SELFPAY ==
[2025-07-13 09:15] VITALS: BP 82/40; PULSE 76; RESP 18; TEMP 36.2; O2SAT 95; BMI 26.9
--- NOTE | 2025-07-13 09:15 | MHC.PC.OV ---
Vital Signs 07/13/25 09:15 07/13/25 09:30 Height 6 ft Weight 198 lb 2 oz BMI 26.9 BP 82/40 L 92/50 L Blood Pressure Location Lt brachial Rt brachial Position Sitting Respiration 18 Pulse 76 Pulse Source Pulse Oximeter Temp 97.1 F Temp Source Temporal Artery Scan Pulse Oximetry (%) 95 Oxygen Delivery Method Room Air Intake Visit Reasons: 3 mo f/u DMII Hydroponics Worker Required: No Accompanied by: Self / Same As Patient Allergies No Known Allergies (No Known Allergies*) Allergy (Verified 07/13/25 09:33) Medication List - Last Reconciled 07/13/25 by Adalberto Stanford PA-C atenolol 25 mg PO DAILY 90 days atorvastatin 40 mg PO QPM 90 days empagliflozin 25 mg PO DAILY 90 days losartan 50 mg PO DAILY 90 days metformin ER mg PO omeprazole 20 mg PO DAILY pantoprazole 40 mg PO DAILY semaglutide (Ozempic) 0.5 mg (0.736 mL) subcut QWEEK 90 days sildenafil 100 mg PO DAILY 4 days tamsulosin 0.8 mg (2 x 0.4 mg) PO DAILY 90 days Tobacco use date assessed: 07/13/25 Fall risk assessment: No Falls in past year Last assessed Fall Risk: 07/13/25 Dental Screening Dental Screen Date: 07/13/25 Did you have a dental visit in the last 12 months?: Yes Did you have a dental problem in the last 6 months where you did not have access to dental care?: No Was dental information given to patient?: Patient has dentist HPI 3 mo f/u DMII HPI Details Patient has a 69 year male here today for follow-up visit Patient has a past medical history significant for hyperlipidemia, type 2 diabetes, hypertension. Concern-- > has noted some cramping over his right leg, noted low blood pressure today in office. We believe his lower blood pressures likely due to dehydration secondary to urinary frequency from his hyperglycemia. Today's A1c at 12 from 9 .. Low blood pressure: Noted low blood pressure readings today in office .. Type 2 diabetes: Patient does admit to polyuria and polydipsia along with a dry mouth likely secondary to hyperglycemia. His diabetes is not well controlled at this time.. Today's A1c at 12 from 9., --> PLAN: Will increase his Ozempic dose to 1 mg weekly, will also increase his metformin to a 1000 daily willing also to start long-acting insulin daily for better glycemic control. Will try to set him up with a continues glucose monitor to better understand when his hyperglycemia is happening. .. Hyperlipidemia: Recent lipid panel showing good control of his total cholesterol and LDL. [facility] Medical History Right shoulder pain High cholesterol Hypertension Diabetes Family History Father No problems noted. Mother No problems noted. 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 1. Little interest or pleasure in doing things: not at all 2. Feeling down, depressed, or hopeless: not at all 3. Trouble falling or staying asleep, or sleeping too much: not at all 4. Feeling tired or having little energy: not at all 5. Poor appetite or overeating: not at all 6. Feeling bad about yourself - or that you are a failure or have let yourself or your family down: not at all 7. Trouble concentrating on things, such as reading the newspaper or watching television: not at all 8. Moving or speaking so slowly that other people could have noticed. Or the opposite - being so fidgety or restless that you have been moving around a lot more than usual: not at all 9. Thoughts that you would be better off or of hurting yourself in some way: not at all Total score: 0 Depression Screening Interpretation: Negative Depression Screening Done: Yes 83046 - PHQ-9 Billing: Yes Source: Developed by Drs. Branden Bonds, Liz Pérez, Mode Patterson and colleagues, with an educational carson from [employer]. Thrive Questionnaire Date Thrive assessed: 07/13/25 I am a: Patient What is your living situation today?: I have a steady place to live Within the past 12 months, did the food you bought not last and you didn't have the money to get more?: Never true Within the past 12 months, did you worry whether your food would run out before you got money to buy more?: Never true Do you have trouble paying for medicines?: No Do you have trouble getting transportation to medical appointments?: No Do you have trouble paying your heating and electricity bill?: No Do you have trouble taking care of your child, family member or friend?: No Do you have trouble with day-to-day activities such as bathing, preparing meals, shopping, managing finances, etc.?: No Are you currently unemployed and looking for a job?: No Are you interested in more education?: Yes Please select the resources that you would like help with: None Currently or been in a relationship where the following occur: I choose not to answer THRIVE Score: 0 AUDIT C Alcohol Use Questionnaire (AUDIT-C) 1. How often do you have a drink containing alcohol?: Never 3. How often do you have six or more drinks on one occasion?: Never Total Score: 0 LINSEY-7 AMB Questionnaire LINSEY-7 Date LINSEY - 7 assessed: 07/13/25 Feeling nervous, anxious, or on edge: 0 = Not at all Not being able to stop or control worryin = Not at all Worrying too much about different things: 0 = Not at all Trouble relaxin = Not at all Being so restless that it is hard to sit still: 0 = Not at all Becoming easily annoyed or irritable: 0 = Not at all Feeling afraid as if something awful might happen: 0 = Not at all Total LINSEY-7 score (0-4 normal; 5-9 mild; 10-14 moderate; 15-21 severe): 0 Source: Developed by Drs. Branden Bonds, Liz Pérez, Mode Patterson and colleagues, with an educational carson from [employer]. Review of Systems Const Denies headache(s) Eyes Denies loss of vision ENT Denies vertigo, Denies dizziness, Denies headache(s) and Denies sore throat Card Denies chest pain, Denies leg edema and Denies lightheadedness Resp Denies cough, Denies hemoptysis and Denies wheezing GI Denies abdominal pain, Denies melena, Denies constipation, Denies diarrhea and Denies vomiting Denies dysuria, Denies urinary frequency and Denies urinary urgency Musc Denies arthralgias, Denies joint swelling, Denies numbness and Denies tingling Neuro Denies Abnormal speech present, Denies behavioral changes, Denies vertigo, Denies dizziness, Denies headache(s), Denies loss of vision, Denies memory loss, Denies numbness and Denies tingling Psych Denies anxiety, Denies behavioral changes, Denies depression, Denies memory loss and Denies panic attacks Maximus/Lymph Denies easy bleeding and Denies easy bruising Aller/Immun Denies wheezing Physical exam (Primary Care) Vital Signs: Last Vital Signs Temp 97.1 F 07/13/25 09:15 Pulse 76 07/13/25 09:15 Resp 18 07/13/25 09:15 BP 92/50 L 07/13/25 09:30 Pulse Ox 95 07/13/25 09:15 Oxygen Delivery Method Room Air 07/13/25 09:15 BMI result Body Mass Index 26.9 Tobacco/Smoking Status: Tobacco use Status Tobacco use date assessed 07/13/25 07/13/25 09:30 Patient Tobacco Use Status Never used Tobacco 07/13/25 09:17 e-Cigarette/Vaping Use Never Used 07/13/25 09:17 PHQ-9: PHQ-9 Score PHQ-9: Total score 0 07/13/25 09:35 Depression Screening Interpretation: Negative Thrive Assessment: Date of Thrive Assessment Date Thrive assessed 07/13/25 07/13/25 09:30 Currently or been in a relationship where the following occur: I choose not to answer Const General: healthy appearing, no acute distress, alert and awake Nutritional Appearance: well nourished Orientation/consciousness: oriented to person, oriented to place and oriented to time HENMT Ears: TM's normal bilaterally General nose exam: Normal nasal mucous membranes and turbinates present Eyes Conjunctivae: conjunctivae normal Sclerae: sclerae normal Pupils: Equal, round and reactive pupils present Neck Neck: Yes no lymphadenopathy and Yes no JVD Thyroid: Thyroid normal Carotids: no bruits Resp Effort & Inspection: normal respiratory effort and not tachypneic Auscultation: no crackles, no rales, no rhonchi and no wheezes Cardio Rate: regular rate Rhythm: regular rhythm Heart sounds: no murmurs and normal S1 and S2 GI Palpation (GI): Soft to palpation, nontender, no hepatomegaly and no splenomegaly Auscultation: normal bowel sounds Skin General skin exam: no rashes or lesions noted and dry skin Neuro General: oriented to person, oriented to place and oriented to time Cranial nerves: Yes Equal, round and reactive pupils present Speech: No Abnormal speech present Gait exam (Neuro): Normal gait present Motor exam (neuro): no tremor noted Extrem Right upper extremity: full ROM Left upper extremity: full ROM Right lower extremity: full ROM; no edema Left lower extremity: full ROM; no edema Psych Mental Status: mental status grossly normal Speech and movement: Normal speech and movement present Affect: normal affect Attitude: cooperative Thought process: Normal thought process present Results AMB Hemoglobin A1c AMB Hemoglobin A1c 12.5 % Last Edit by CORWIN Helton on 07/13/25 09:44 Coding Level of Care Code Est Pt Level 4 (04994) Diagnoses Type 2 diabetes mellitus with right eye affected by mild nonproliferative retinopathy without macular edema, without long-term current use of insulin E11.3291 Diabetes mellitus type: type 2 Diabetes mellitus jail insulin use: without supervisor intermediates use Diabetes mellitus complication status: with ophthalmic complications Diabetes mellitus complication detail: with diabetic retinopathy Diabetic retinopathy severity: with mild nonproliferative retinopathy Laterality: right Diabetes mellitus macular edema: without macular edema High cholesterol E78.00 Primary hypertension I10 Hypertension type: primary hypertension Benign prostatic hyperplasia without lower urinary tract symptoms N40.0 Lower urinary tract symptom presence: symptoms absent Additional Codes PHQ-9 - 96169 - PHQ-9 Billing: Yes ([id number]) Assessment & Plan Assessment & Plan (1) Diabetes: Code(s): E11.9 - Type 2 diabetes mellitus without complications Category: Medical Qualifiers: Diabetes mellitus type: type 2 Diabetes mellitus jail insulin use: without supervisor intermediates use Diabetes mellitus complication status: with ophthalmic complications Diabetes mellitus complication detail: with diabetic retinopathy Diabetic retinopathy severity: with mild nonproliferative retinopathy Laterality: right Diabetes mellitus macular edema: without macular edema Qualified Code(s): E11.3291 - Type 2 diabetes 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 Noted glucosuria. Does have diabetic retinopathy . Will increase his metformin, add on long-acting insulin Lantus 10 units Increase his Ozempic to 1 mg weekly for better glycemic control. WILL TRY TO SET PATIENT UP WITH A CONTINUES GLUCOSE MONITOR FOR BETTER UNDERSTANDING OF HIS DAILY SUGARS Goal A1c is to be below 7.0 (2) High cholesterol: Code(s): E78.00 - Pure hypercholesterolemia, unspecified Category: Medical Plan: Most recent lipid panel showing good control of his total cholesterol and LDL. He continues on atorvastatin 40 mg. Goal LDL to remain below 100 (3) Hypertension: Code(s): I10 - Essential (primary) hypertension Category: Medical Qualifiers: Hypertension type: primary hypertension Qualified Code(s): I10 - Essential (primary) hypertension Plan: Patient's blood pressure on the low side today likely secondary to urinary frequency may be a bit dehydrated. Advised to stay well hydrated and will try to capture better control of his glucose with long-acting insulin. He continues with the atenolol and losartan. Goal blood pressure to be below 140/90 (4) BPH (benign prostatic hyperplasia): Code(s): N40.0 - Benign prostatic hyperplasia without lower urinary tract symptoms Category: Medical Qualifiers: Lower urinary tract symptom presence: symptoms absent Qualified Code(s): N40.0 - Benign prostatic hyperplasia without lower urinary tract symptoms Plan: Patient continues on tamsulosin though recently noted incomplete bladder emptying symptoms. Most recent PSA normal Orders: Orders Microalbumin, Random (w Creat) Today I10 - Essential (primary) hypertension Complete Blood Count no Diff Today I10 - Essential (primary) hypertension AMB Hemoglobin A1c Today Z13.9 - Encounter for screening, unspecified Comprehensive [place]. Panel Fast Today I10 - Essential (primary) hypertension Prostate Specific Antigen Scr Today N40.0 - Benign prostatic hyperplasia without lower urinary tract symptoms, Z12.5 - Encounter for screening for malignant neoplasm of prostate Medications: New metformin 1,000 mg PO DAILY 90 tabs 2RF 90 days - Type 2 diabetes mellitus with hyperglycemia insulin glargine (Lantus Solostar U-100 Insulin) 10 units (0.1 mL) subcut QPM 3 mL 1RF 30 days - Type 2 diabetes mellitus with hyperglycemia pen needle, diabetic As directed 50 ea 0RF E11.65 - Type 2 diabetes mellitus with hyperglycemia blood-glucose,dope house operator helper,cont (FreeStyle Lulu 3 [place]) As directed 1 ea 0RF E11.65 - Type 2 diabetes mellitus with hyperglycemia semaglutide (Ozempic) 1 mg (0.75 mL) subcut QWEEK 9.75 mL 2RF 90 days E11.65 - Type 2 diabetes mellitus with hyperglycemia blood-glucose sensor (FreeStyle Lulu 3 Sensor device) As directed 2 ea 6RF E11.65 - Type 2 diabetes mellitus with hyperglycemia Changed From sildenafil 100 mg PO DAILY 4 days 4 tabs 0RF E11.69 - Type 2 diabetes mellitus with other specified complication, N52.1 - Erectile dysfunction due to diseases classified elsewhere To sildenafil 100 mg PO DAILY 10 tabs 0RF 10 days E11.69 - Type 2 diabetes mellitus with other specified complication, N52.1 - Erectile dysfunction due to diseases classified elsewhere Discontinued semaglutide (Ozempic) Discontinued Reason: Doctor's Order 0.5 mg (0.736 mL) subcut QWEEK 90 days 9.568 mL 3RF E11.65 - Type 2 diabetes mellitus with hyperglycemia
[2025-07-13 09:30] VITALS: BP 92/50
--- OUTSIDE RECORDS SUMMARY | 2025-07-13 09:46 | XMS_ITS | Encounter Summary ---
Author Organization [facility] Address [address] [facility] [facility] [address] [place] [address] Phone Care Team Providers Care Doughnut Fryer Name Role Phone Clyde Barakat DO Unavailable [phone] Víctor Augustine MD Primary Care Provider [phone] Pcp, Unknown Primary Care Provider Unavailabl e Encounter Details Date Type Department Care Team (Late st Contact Info) Description 03/21/2022 Procedure Pass [place] Admitting Dept - Virtual Department [address] [place] [address] Social History Tobacco Use Types Packs/Day Years [...] high school, GED, job training, learning the [place] language, technical skills, or developing parenting skills)? 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 Not on file Not on file documented as of this encounter Functional Status * Calculated C-SSRS Risk Score (Lifetime/Recent) Answer Date of Assessment Author No Risk Indicated 03/21/2022 6:24 AM EDT Tatiana Miller RN * Beccaria Suicide Severity Rating Scale (Screener/Recent Self-Report) Question [...] documented as of this encounter Care Teams Doughnut Fryer Relationship Specialty Start Date End Date Víctor Augustine MD [address] [place] [address], [address] [place] [address] PCP - General Internal Medicine 12/31/18 01/05/25 Pcp, Unknown PCP - General 01/06/25 Clyde Barakat DO [address] [place] [address] Orthopedics & Sports Medicine, [place] [address] [email or web address] Historical LMR Provider 08/29/17 documented as of this encounter Additional Source Comments The information contained in this document represents components of the legal health record. It is not the complete legal health record.[facility]
--- OUTSIDE RECORDS SUMMARY | 2025-07-13 09:46 | XMS_ITS | Encounter Summary ---
Author Organization [facility] Address [address] [facility] [address] [place] [address] Phone Care Team Providers Care Auto Specialty Services Manager Name Role Phone Roshni Clyde Kunz DO Unavailable Nichelle Rollins DPM Unavailable Unavailable Mirza Maynard MD Unavailable [phone] Víctor Augustine MD Primary Care Provider [phone] Pcp, Unknown Primary Care Provider Unavailabl e Encounter Details Date Type Department Care Team (Late st Contact Info) Description 05/16/2020 Procedure Pass [facility], [address] [address] Social History Tobacco Use Types Packs/Day Years [...] documented as of this encounter Care Teams Auto Specialty Services Manager Relationship Specialty Start Date End Date Víctor Augustine MD [address] [place], [place] [id number] [place] [address] [email or web address] PCP - General Internal Medicine 12/31/18 01/05/25 Pcp, Unknown PCP - General 01/06/25 Clyde Barakat DO [address] [place] [address] Orthopedics & Sports Medicine, [place] [address] [email or web address] Historical LMR Provider 08/29/17 Nichelle Rollins DPM [address] [place] [address] Historical LMR Provider 08/29/1711/16/21 Mirza Maynard MD [address] [place] [address] [email or web address] Historical LMR Provider 08/29/17 2 documented as of this encounter Additional Source Comments The information contained in this document represents components of the legal health record. It is not the complete legal health record.[facility]
--- OUTSIDE RECORDS SUMMARY | 2025-07-13 09:46 | XMS_ITS | Encounter Summary ---
Author Organization [facility] Address [address] [facility] [address] [place] [address] Phone Care Team Providers Care Condominium Association Manager Name Role Phone Clyde Barakat Joaquina DO Unavailable [phone] Nichelle Rollins DPM Unavailable Unavailable Mirza Maynard MD Unavailable [phone] Arcadio Robledo MD Primary Care Provider [phone] Víctor Augustine MD Primary Care Provider [phone] Pcp, Unknown Primary Care Provider Unavailabl e Encounter Details Date Type Department Care Team (Latest Contact Info) Description 12/02/2018 Transcribe Orders [facility] Laboratory [address] [id number] Kristal Gibbons PA [address] [phone] [email or web address] Gross hematuria (Primary Dx) Social History Tobacco [...] EST) CREATININE 0.90 0.5 - 1.5 mg/dL [facility] EGFR 91 >59 mL/min/1.7 3m2 [facility] Comment:If patient is black, multiply result by 1.159. Estimated glomerular filtration rate calculated using the CKD-EPI equation. Blood 12/02/2018 10:5 8 AM EST 12/02/2018 11:02 AM EST us Kristal JONES LAB BLOOD ORDERABLES Final Result [address] [address] * BUN (12/02/2018 10:58 AM EST) BUN 13 6 - 19 mg/dL [facility] Blood 12/02/2018 10:5 8 AM EST 12/02/2018 11:02 AM EST Kristal JONES LAB BLOOD ORDERABLES Final Result [address] [address] * PSA (screening) (12/02/2018 10:58 AM EST) PSA 1.05 0 - 4.00 ng/mL [facility] Blood 12/02/2018 10:5 8 AM EST 12/02/2018 11:02 AM EST Kristal JONES LAB BLOOD ORDERABLES Final Result [address] [address] documented in this encounter Visit Diagnoses Diagnosis Gross hematuria- Primary documented in this encounter Additional Health Concerns Infection Onset Date Last Indicated Resolved Time COVID-19 Comment:Positive Test done at [facility]. 02/23/2020 03/17/2020 04/27/2020 3:33 PM E DT documented as of this encounter Care Teams Condominium Association Manager Relationship Specialty Start Date End Date Arcadio Robledo MD [address] [facility] [place] [address] PCP - General Internal Medicine 09/16/17 12/30/18 Víctor Augustine MD [address] [facility] [place] [address] PCP - General Internal Medicine 12/31/18 01/05/25 Pcp, Unknown PCP - General 01/06/25 Clyde Barakat DO [address] [place] [address] Orthopedics & Sports Medicine, [facility] [place] [address] Historical LMR Provider 08/29/17 Nichelle Rollins DPM [address] [place] [address] Historical LMR Provider 08/29/1711/16/21 Mirza Maynard MD [address] [place] [address] Historical LMR Provider 08/29/17 2 documented as of this encounter Additional Source Comments The information contained in this document represents components of the legal health record. It is not the complete legal health record.[facility]
--- OUTSIDE RECORDS SUMMARY | 2025-07-13 09:46 | XMS_ITS | Encounter Summary ---
Author Organization [facility] Address [address] [facility] [address] [place] [address] Phone Care Team Providers Care Services Manager Name Role Phone Clyde Barakat DO Unavailable [phone] Nichelle Rollins DPM Unavailable Unavailable Mirza Maynard MD Unavailable [phone] Arcadio Robledo MD Primary Care Provider [phone] Víctor Augustine MD Primary Care Provider [phone] Pcp, Unknown Primary Care Provider Unavailabl e Encounter Details Date Type Department Care Team (Late st Contact Info) Description 02/11/2018 Procedure Pass [facility] Endoscopy Admitting Dept Virtual Department [address] [place] [address] Social History Tobacco Use Types Packs/Day Years [...] Resolved Time COVID-19 Comment:Positive Test done at [facility]. 02/23/2020 03/17/2020 04/27/2020 3:33 PM E DT documented as of this encounter Care Teams Services Manager Relationship Specialty Start Date End Date Arcadio Robledo MD [address] [facility] [place] [address] PCP - General Internal Medicine 09/16/17 12/30/18 Víctor Augustine MD [address] [facility] [place] [address] PCP - General Internal Medicine 12/31/18 01/05/25 Pcp, Unknown PCP - General 01/06/25 Clyde Barakat DO [address] [place] [address] Orthopedics & Sports Medicine, [place] [address] Historical LMR Provider 08/29/17 Nichelle Rollins DPM [address] [place] [address] Historical LMR Provider 08/29/1711/16/21 Mirza Maynard MD [address] [place] [address] [email or web address] Historical LMR Provider 08/29/17 2 documented as of this encounter Additional Source Comments The information contained in this document represents components of the legal health record. It is not the complete legal health record.[facility]
--- OUTSIDE RECORDS SUMMARY | 2025-07-13 09:46 | XMS_ITS | Clinical Summary ---
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 Name Role Phone Roshni Clyde Joaquina DO Unavailable [phone] Pcp, Unknown Primary Care Provider Unavailabl e [...] External Referral to Ophthalmology ([facility]) Assessment & Plan (06/26/2024 6:18 PM EDT): [...] (09/06/2021 8:49 AM EDT): Recent MRI at [facility] [place], report requested, disc to be sent to [...] External Referral to Ophthalmology ([facility]) Assessment & Plan (10/22/2024 9:04 PM EST): [...] External Referral to Ophthalmology ([facility]) Assessment & Plan (06/26/2024 6:18 PM EDT): [...] he continue taking twice daily dosing. During christianity observance of , I recommended that he [...] for education, [place] [address] [place]. 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 Limit bread to 1 slice per day. Medical Devices Implanted Type Area Registered Nurse Hh Case Manager Device Identifier Shelf Expiration Date Model / Serial / Lot [place] Suture 4.5mm Arthroscopy Reelx Stt Peek Ss Core Knotless Shapr Tip Expandable Bx/5ea - [id number] Implanted:Qty: 3 on 03/21/2022 by Clyde Barakat DO at [facility] Right: Acromial Process [employer] 10/01/2023 [id number] Kit [place] 4.75mm Suture Heal[employer] Regensorb Repair 3 Sutures Kt/3 - [id number] Implanted:Qty: 1 on 03/21/2022 by Clyde Barakat DO at [facility] Right: Acromial Process [employer] 12/11/2024 [id number] / / [id number] Procedures Procedure Name Priority Date/Time Associated Diagnosis [...] MD LAB BLOOD ORDERABLES Final Res ult [facility] [address] [place] [address] * (ABNORMAL) Hemoglobin A1c (06/21/2024 3:49 PM EDT) HEMOGLOBIN A1C 9.7(H) 4.3 - 5.8 % [facility] Blood 06/21/2024 3:49 PM EDT 06/21/2024 3:53 PM EDT Result [facility] Víctor Augustine MD LAB BLOOD ORDERABLES Final Res ult Performing Organization Address [facility]/ZIP Co de Phone Number [address] [address] * (ABNORMAL) Basic metabolic panel (06/21/2024 3:49 PM EDT) SODIUM 138 133 - 146 mmol/L [facility] CHLORIDE 101 96 - 108 mmol/L [facility] POTASSIUM 4.2 3.3 - 5.1 mmol/L [facility] CO2 28 21 - 35 mmol/L [facility] BUN 19 6 - 19 mg/dL [facility] CREATININE 0.80 0.5 - 1.5 mg/dL [facility] GLUCOSE 148(H) 70 - 99 mg/dL [facility] CALCIUM 9.3 8.4 - 10.3 mg/dL [facility] EGFR 97 >59 mL/min/1.7 3m2 [facility] Comment:Estimated glomerular filtration rate calculated using the CKD-EPI refit equation. ANION GAP 13 10 - 20 mmol/L [facility] Blood 06/21/2024 3:49 PM EDT 06/21/2024 3:53 PM EDT Result [facility] Víctor Augustine MD LAB BLOOD ORDERABLES Final Res ult Performing Organization Address [facility] Co de Phone Number [address] [address] * DIABETES EYE EXAM FOR RESULT ENTRY ONLY (12/18/2023 2:49 PM EST) Terry Bae MD HEALTH MAINTENANCE Final Result * Hepatitis C antibody, qualitative (09/19/2022 9:07 AM EST) HCV NON-REACTIV E NON-REACTI VE [facility] Blood 09/19/2022 9:07 AM EST 09/19/2022 9:09 AM EST Víctor Augustine MD LAB BLOOD ORDERABLES Final Res ult [facility] [address] [place] [address] * ENDOSCOPY, COLON (02/11/2018 8:33 AM EDT) Narrative Transcriptions Arminda Roe MD - 02/11/2018 8:33 AM EDT Patient Name: Pricila Tony Attending MD:: ARMINDA ROE MD Procedure Date: 02/11/2018 8:33 AM Date of : 1955 Age: 62 Admit Type: Outpatient Gender: Male Room: [facility] Referring MD: MARIS ROBLEDO Exam Type: Colonoscopy [...] monitored continuously. The Olympus adult variable colonoscope [id number] #4 was introduced through the anus and [...] 8:33 AM Procedure Code(s): --- Professional --- 75882, Colonoscopy, flexible; diagnostic, including collection of specimen(s) by brushing or washing, when performed (separateprocedure) --- Technical --- 96033, Colonoscopy, flexible; diagnostic, including collection of specimen(s) by brushing or washing, when performed (separateprocedure) Diagnosis Code(s): --- Professional --- Z12.11, Encounter for screening for malignant neoplasm of colon --- Technical --- Z12.11, Encounter for screening for malignant neoplasm of colon CPT copyright 2016 [employer]. All rights reserved. The codes documented in this report are preliminary and upon desilverizer reviewmay be revised to meet current compliance requirements. [address] [place] [address] Maris Robledo MD GI PROCEDURE ORDERABLES Edited Result - Final from Last 3 Months or Most Recently Relevant to Health Maintenance Insurance MEDICARE A [facility] [employer] MEDICARE A [facility] [employer] [id number] MEDICARE A MEDICARE A MEDICARE A [facility] [employer] [place] [id number] MEDICARE A MEDICARE A [facility] [employer] MEDICARE A [facility] [employer] [place] [id number] MEDICARE A [facility] [employer] Care Teams Automatic Gluing Machine Operator Relationship Specialty Start Date End Date Pcp, Unknown PCP - General 01/06/25 Clyde Barakat DO [address] [place] [address] Orthopedics & Sports Medicine, [place] [address] [email or web address] Historical LMR Provider 08/29/17 Additional Source Comments The information contained in this document represents components of the legal health record. It is not the complete legal health record.[facility]
== END 2025-07-13 10:34 | disposition home or self-care (01) ==
LOC: HO.HMCH 09:14
PROVIDERS: PCP Physician Assistant; Visit Provider Physician Assistant
DX: E11.3291 Type 2 diabetes mellitus with mild nonproliferative diabetic retinopathy without macular edema, right eye (principal); E78.00 Pure hypercholesterolemia, unspecified; I10 Essential (primary) hypertension; N40.0 Benign prostatic hyperplasia without lower urinary tract symptoms; Z13.9 Encounter for screening, unspecified

== ENCOUNTER → 2025-07-13 09:13 | Outpatient (BNVA) | payer OTHER, SELFPAY | PROVIDERS: PCP Physician Assistant; Visit Provider Physician Assistant | DX: E11.3291 Type 2 diabetes mellitus with mild nonproliferative diabetic retinopathy without macular edema, right eye (principal); E11.65 Type 2 diabetes mellitus with hyperglycemia; E78.00 Pure hypercholesterolemia, unspecified; E78.5 Hyperlipidemia, unspecified; I10 Essential (primary) hypertension; N40.0 Benign prostatic hyperplasia without lower urinary tract symptoms | CPT/HCPCS: 83036; 96127 ==